=== PATIENT | male | born 1940 | race Caucasian/White ===

== ENCOUNTER 2023-08-19 15:00 | Emergency (ER) | payer MEDICARE, OTHER, SELFPAY ==
[2023-08-19 15:07] VITALS: BP 157/91
[2023-08-19 18:37] VITALS: BMI 37.9
[2023-08-19 18:38] VITALS: BP 137/82
[2023-08-19 19:00] VITALS: BP 137/83
[2023-08-19 19:01] LABS: % Basophils 0.6 % (0-2); % Eosinophils 1.5 % (0-6); % Immature Granulocytes 0.3 % (0-0.5); % Lymphocytes 22.6 % (20.5-51.1); % Monocytes 8.4 % (1.7-9.3); % Neutrophils 66.6 % (42.2-75.2); Absolute Basophils 0.1 10^3/uL (0-0.2); Absolute Eosinophils 0.1 10^3/uL (0-0.7); Absolute Monocytes 0.7 10^3/uL (0.1-0.6); Absolute Neutrophils 5.8 10^3/uL (1.4-6.5); Hematocrit 38.4 % (39.0-52.0); Hemoglobin 13.1 g/dL (13.0-18.0); Mean Corp Hgb Conc. 34.1 g/dL (33.0-37.0); Mean Corpuscular Hgb 29.7 pg (27.0-31.0); Mean Corpuscular Volume 87.1 fL (80.0-94.0); Mean Platelet Volume 10.7 fL (7.4-10.4); Nucleated Red Blood Cells % 0 % (-); Platelet Count 218 10^3/uL (130-400); Red Blood Cell Count 4.41 10^6/uL (4.70-6.10); Red Cell Dist. Width 13.8 % (11.5-14.5); White Blood Cell Count 8.7 10^3/uL (4.8-10.8)
[2023-08-19 19:26] LABS: ALT (SGPT) 20 U/L (0-50); AST (SGOT) 23 U/L (17-59); Albumin 3.8 g/dl (3.5-5.0); Alkaline Phosphatase 87 U/L (38-126); Blood Urea Nitrogen 21 mg/dl (9-20); Calcium 9.6 mg/dl (8.4-10.2); Carbon Dioxide 28 mmol/L (22-30); Chloride 107 mmol/L (98-107); Estimated Creatinine Clearance 71 ml/min; Glucose 85 mg/dl (70-99); Lipase 62 U/L (23-300); Potassium 4.2 mmol/L (3.5-5.1); Sodium 139 mmol/L (135-145); Total Bilirubin 0.6 mg/dl (0.2-1.3); Total Protein 6.2 g/dl (6.3-8.2); eGFR > 60.00
[2023-08-19 19:49] LABS: Urine Albumin Trace (Neg - Trace); Urine Bilirubin 1+ (Negative); Urine Character Clear (Clear); Urine Color Yellow; Urine Glucose Negative (Negative); Urine Ketone 1+ (Negative); Urine Leukocyte Negative (Negative); Urine Nitrite Negative (Negative); Urine Occult Blood Negative (Negative); Urine Specific Gravity 1.025 (<1.030); Urine Urobilinogen Negative (Neg - 1+)
--- NOTE | 2023-08-19 20:09 | ED.GENMED ---
History of Present Illness
General
Chief Complaint: Back Pain
Source: patient
Exam Limitations: none
Time Seen by Provider: 08/19/23 17:49
Nursing documentation reviewed up to this point in time: agreed with
Travel History
Have you had any contact with someone who has COVID-19?: No
Do you have any symptoms of coronavirus? Fever > 100 degrees, chills, cough, shortness of breath, sore throat, loss of taste or smell, muscle aches, or headache?: No
History of Present Illness
History of Present Illness:
Patient to ED with complaint of low back pain for 1 week. No history of trauma. Denies fever/chills, n/v/d. Denies any abdominal pain, cp/pressure, SOB. Eating and drinking normally. Pain is worse with movement. He was seen at and sent to ED
for further work-up. Brought to ED by spouse for eval.
Past History
Past History
ED Past Medical History: CAD and HTN
ED Past Surgical History: Cardiac
Social History
Tobacco: Non-smoker
Alcohol: None
Drug: None
Review of Systems
Review of Systems
Allergies reviewed?: Yes
All Other Systems: ROS reviewed and negative except as documented in HPI and ROS
Constitutional: Reports no symptoms
EENT: Reports no symptoms
Respiratory: Reports no symptoms
Cardiac: Reports no symptoms
ABD/GI: Reports no symptoms
: Reports no symptoms
Musculoskeletal: Reports back pain
Skin: Reports no symptoms
Neurological: Reports no symptoms
Psychiatric: Reports no symptoms
Phy Exam
General Physical Exam
General Presentation: well appearing and no apparent distress
General age: appears stated age
General Skin: warm and dry
General Habitus: normal
Cardiovascular Exam
Cardiovascular Exam: regular rate/rhythm and no edema
Pulmonary Exam
Pulmonary Exam: lungs clear and no respiratory distress
Gastrointestinal Exam
Gastrointestinal Exam: normal bowel sounds, non tender, soft, no organomegaly, non distended and no cva tenderness
Musculoskeletal Exam
Musculoskeletal Exam: full ROM, back pain and neuro vasc intact
Skin Exam
Skin Exam: normal color, warm/dry and no rash
Psychiatric Exam
Psychiatric Exam: normal mood/affect
Course
Orders/Labs/Results
Orders:
Orders
08/19/23 18:54
Complete Blood Count/With Diff Urgent
Comprehensive Metabolic Panel Urgent
Lipase Urgent
08/19/23 19:38
Lumbar Spine Complete, 4 View [CR Lumbar Spine Comp Min 4 Vw*] Urgent
Comment:
Reason For Exam: back pain
08/19/23 19:39
Urinalysis Reflex To Culture Urgent
Date Specimen was Collected: 08/19/23
Time Specimen was Collected: 19:37
08/19/23 20:32
Ct Chest/Abd/Pel Angio W/Wo Iv Urgent
Reason For Exam: pain
Abnormal Lab Results
08/19/23 08/19/23
18:54 19:39
RBC 4.41 L 10^6/uL
(4.70-6.10)
Hct 38.4 L %
(39.0-52.0)
MPV 10.7 H fL
(7.4-10.4)
Absolute Monos (auto) 0.7 H 10^3/uL
(0.1-0.6)
BUN 21 H mg/dl
(9-20)
Total Protein 6.2 L g/dl
(6.3-8.2)
Urine Ketones 1+ A
(Negative)
Urine Bilirubin 1+ A
(Negative)
08/19/23 18:54
08/19/23 18:54
Vital Signs
Initial and Last Documented VS:
Initial Vital Signs
Temp Pulse Resp BP Pulse Ox
98.5 F 85 16 157/91 96
08/19/23 15:07 08/19/23 15:07 08/19/23 15:07 08/19/23 15:07 08/19/23 15:07
Last Documented Vital Signs
Temp Pulse Resp BP Pulse Ox
98.5 F 85 16 137/83 94
08/19/23 15:07 08/19/23 15:07 08/19/23 15:07 08/19/23 19:00 08/19/23 20:01
*Critical Care Note
Total Time (30-74mins, 75-104mins- exclusive of procedures): Not Applicable
Update Note
Update Note:
Patient to ED from with complaint of low back pain. Has had back pain for the past week. Pain is worse with movement. No history of trauma. No fever/chills,n/v/d. No cp/pressure, SOB, cough, abdominal pain. No headache dizziness,
blurredvision. Became belligerent in ED due to long wait time. Threatening to give bad review on facebook. Unable to talk patient out of his ranting. Charge nurse notified, housekeeping aid notified, both in to see patient. Initially requested
discharge but then agreed to stay to complete work-up [facility] he states he was sent by provider to R/O aortic dissection. No concerning findings for dissection on clinical exam however CTA was performed. No dissection noted on CTA. Possible
thoracic compression fracture. He is discharged home.
ED Attending Note
-
Portions of this chart may have been created with voice recognition software.� Occasional wrong word or��sound alike� substitutions may have occurred due to the inherent limitations of voice recognition software.
Discharge Plan
Departure
Patient Disposition: Home (Routine Discharge)
Date of Disposition: 08/19/23
Time of Disposition: 20:06
Patient with high blood pressure during this ER visit?: No
Condition: Good
Covid-19: Not Applicable
Discharge Problem:
Back pain
Instructions: Low Back Pain (DC)
Prescriptions:
No Action
atorvastatin 40 MG tablet
40 mg PO HS
ascorbic acid (vitamin C) [Vitamin C] 1,000 MG tablet
1,000 mg PO DAILY
aspirin 81 MG tablet,delayed release (DR/EC)
81 mg PO DAILY
citalopram 20 MG tablet
30 mg PO DAILY
meclizine 25 MG tablet
25 mg PO PRN PRN (Reason: vertigo)
lidocaine 1 PATCH adhesive patch,medicated
1 patch topical PRN PRN (Reason: knee pain)
nitroglycerin 0.4 MG tablet, sublingual
1 spry sublingual PRN PRN (Reason: chest pain)
Patient Comments:
give 1 spray every 5 minutes to total of 3 doses
omeprazole [Prilosec] 20 MG capsule,delayed release(DR/EC)
20 mg PO DAILY
alfuzosin 10 MG tablet extended release 24 hr
20 mg PO HS
Patient Comments:
pt could NOT verify dosage for me but stated he takes '2 tabs'. Rafiq Buenrostro RN
metoprolol tartrate 25 MG tablet
25 mg PO DAILY
hydrocodone-acetaminophen [Vicodin] 1 EACH tablet
1 tab PO Q6HPRN PRN (Reason: pain)
Lactobac comb [id number] [Probiotic and Acidophilus] 1 EACH capsule
1 cap PO BID PRN (Reason: prn)
mecobalamin (vitamin B12) 1,000 MCG tablet,disintegrating
1,000 mcg sublingual DAILY
oxycodone-acetaminophen 5 MG/325 MG tablet
1 tab PO Q4HPRN PRN (Reason: MODERATE PAIN) Qty: 20 0RF
Rx Instructions:
OK to take half a pill if 1 pill is too much.
meclizine 25 MG tablet
25 mg PO Q8HPRN PRN (Reason: nausea or vertigo) Qty: 15 0RF
famotidine 20 MG tablet
20 mg PO BID Qty: 28 0RF
Rx Instructions:
Take 20 mg twice a day for 14 days
ascorbic acid (vitamin C) [Vitamin C] 500 MG tablet
1,000 mg PO BID Qty: 56 0RF
Rx Instructions:
Take 1,000 mg twice a day for 14 days
zinc sulfate 220 MG capsule
220 mg PO DAILY Qty: 14 0RF
Rx Instructions:
Take 220 mg daily for 14 days
cholecalciferol (vitamin D3) 1,000 UNITS tablet
2,000 units PO DAILY Qty: 28 0RF
Rx Instructions:
Take 2,000 units daily for 14 days
melatonin 5 MG tablet
5 mg PO HS Qty: 14 0RF
Rx Instructions:
Take 5 mg daily at bedtime for 14 days
Referrals:
Viral Salmon MD [Family Provider] -
Activity Restrictions/Additional Instructions:
Please follow up with your family doctor on Monday.
Interventions
Interventions:
*Risk Screen - Suicide Last Done: 08/19/23 18:37
*General Assessment Last Done: 08/19/23 18:37
*Neglect/Abuse Screening Last Done: 08/19/23 18:37
ED- Fall Risk Assessment Last Done: 08/19/23 18:37
*ED COVID-19 Vaccine History Last Done: 08/19/23 15:07
ED-Musculoskeletal Assessment Last Done: 08/19/23 18:37
== END 2023-08-19 21:38 | disposition home or self-care (01) ==
LOC: EMR 15:00
PROVIDERS: Nurse Practitioner; EMERGENCY PHYSICIAN Emergency Medicine; FAMILY PHYSICIAN Family Medicine
DX: M54.50 Low back pain, unspecified (principal); I25.10 Atherosclerotic heart disease of native coronary artery without angina pectoris; I10 Essential (primary) hypertension
CPT/HCPCS: 99284; 71275; 72110; 74174; 80053; 81003; 83690; 85025; Q9967

== ENCOUNTER → 2024-08-20 11:07 | Outpatient (REF) | payer MEDICARE, OTHER, SELFPAY | LOC: RCS 11:07 | PROVIDERS: ATTENDING PHYSICIAN Student in an Organized Health Care Education/Training Program; FAMILY PHYSICIAN Family Medicine | DX: I35.0 Nonrheumatic aortic (valve) stenosis (principal) | CPT/HCPCS: 93306 ==

== ENCOUNTER 2024-12-31 14:45 | Inpatient (IN) | payer MEDICARE, OTHER, SELFPAY ==
[2024-12-31 14:57] VITALS: BMI 37.7
[2024-12-31 15:00] VITALS: BP 123/80
--- NOTE | 2024-12-31 15:05 | CON.CAR ---
Addendum entered and electronically signed by Dante Bean MD 12/31/24 16:35:
Patient seen and examined in collaboration with [employer]; agree with below.
- 84-year-old male with coronary artery disease (BMS to RCA in 2000), permanent pacemaker implantation, hypertension, hyperlipidemia, aortic stenosis, NSVT, and obesity who presented to [facility] with symptoms concerning for
angina; labs and findings consistent with an NSTEMI. Cardiac catheterization was recommended, but patient wanted to be transferred to [facility] for management.
- Patient will undergo an echocardiogram today.
- Continue heparin drip.
- Continue Toprol-XL, atorvastatin, and aspirin.
- court recording monitor.
- Will arrange cardiac catheterization for tomorrow morning; n.p.o. after midnight.
Original Note:
Consultation
Consultation Request
Date/Time Consultation Requested: 12/31/2024 15:00
Date/Time Consultation Performed: 12/31/2024 15:05
Requesting Provider: Dr. Sharma
Performing Provider: NESSA Steen for Dr. Bean
Reason for Consultation: NSTEMI
Medical History
-
Chief Complaint: Bilateral arm pain
History of Present Illness:
Guillermo Moreno is an 84-year-old male (known to Dr. Dan, switching to Dr. 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
[place] with bilateral arm pain. This has been ongoing for approximately 5 weeks. He has hand pain that radiates up his arms. This is very reminiscent of his prior LA. He tried tramadol without relief. He has been to many urgent cares and was
even in the emergency department without any acute findings. He endorses associated diaphoresis and mild chest pressure. Prior to arrival at other facility he took 2 nitroglycerin. He was found to have an abnormal troponin. The patient requested
transfer to this facility for continuation of care. He denies chest pain presently.
No records available, requested.
Past Medical History
Past Medical History: Arrhythmias (NSVT), CAD (BMS 2000), HTN, Hypercholesterolemia and Valvular Disease (Aortic stenosis)
Past Surgical History: Bowel Resection and Tonsilectomy
Social History
Tobacco: Non-Smoker
Personal:
Living: With Family
Employment: Retired (Salesman)
Family History
Family History: Reviewed & Not Pertinent
Allergies / Home Medications
Allergy/AdvReac Type Severity Reaction Status Date / Time
No Known Allergies Allergy Verified 11/13/20 08:50
�Medication �Instructions �Recorded �Confirmed �Type
Lactobacillus comb 1 cap PO BID PRN prn 06/23/15 06/23/15 History
no.[id number] 300 million
cell-250 mg capsule (Probiotic and
Acidophilus)
alfuzosin 10 mg tablet,extended 20 mg PO HS 06/23/15 06/23/15 History
release 24 hr
ascorbic acid (vitamin C) 1,000 mg 1,000 mg PO DAILY 06/23/15 06/23/15 History
tablet (Vitamin C)
aspirin 81 mg tablet,delayed 81 mg PO DAILY 06/23/15 06/23/15 History
release
atorvastatin 40 mg tablet 40 mg PO HS 06/23/15 06/23/15 History
citalopram 20 mg tablet 30 mg PO DAILY 06/23/15 06/23/15 History
hydrocodone 5 mg-acetaminophen 300 1 tab PO Q6HPRN PRN pain 06/23/15 06/23/15 History
mg tablet (Vicodin)
lidocaine 5 % topical patch 1 patch topical PRN PRN knee pain 06/23/15 06/23/15 History
meclizine 25 mg tablet 25 mg PO PRN PRN vertigo 06/23/15 06/23/15 History
mecobalamin (vitamin B12) 1,000 1,000 mcg sublingual DAILY 06/23/15 06/23/15 History
mcg disintegrating
tablet,sublingual
metoprolol tartrate 25 mg tablet 25 mg PO DAILY 06/23/15 06/23/15 History
nitroglycerin 0.4 mg sublingual 1 spry sublingual PRN PRN chest 06/23/15 06/23/15 History
tablet pain
omeprazole 20 mg capsule,delayed 20 mg PO DAILY 06/23/15 06/23/15 History
release (Prilosec)
oxycodone-acetaminophen 5 mg-325 1 tab PO Q4HPRN PRN MODERATE PAIN 06/24/15 Rx
mg tablet ##20
meclizine 25 mg tablet 25 mg PO Q8HPRN PRN nausea or 04/11/18 Rx
vertigo #15 tabs
ascorbic acid (vitamin C) 500 mg 1,000 mg (2 x 500 mg) PO BID #56 08/11/21 Rx
tablet (Vitamin C) tabs
cholecalciferol (vitamin D3) 25 2,000 units PO DAILY #28 tabs 08/11/21 Rx
mcg (1,000 unit) tablet
famotidine 20 mg tablet 20 mg PO BID #28 tabs 08/11/21 Rx
melatonin 5 mg tablet 5 mg PO HS #14 tabs 08/11/21 Rx
zinc sulfate 50 mg zinc (220 mg) 220 mg (4.4 x 50 mg zinc (220 mg)) 08/11/21 Rx
capsule PO DAILY #14 caps
Review of Systems
-
History Source: Patient
All other systems: Negative unless noted
Constitutional: Fatigue
EENT: No Symptoms
Respiratory: No Symptoms
Cardiac: Other (See HPI)
Abdomen/GI: No Symptoms
: No Symptoms
Musculoskeletal: No Symptoms
Skin: No Symptoms
Neurological: No Symptoms
Endocrine: No Symptoms
Hematologic/Lymphatic: No Symptoms
Physical Exam
Vital Signs
Temp Pulse Resp Pulse Ox
98.4 F 104 18 95
12/31/24 14:56 12/31/24 14:56 12/31/24 14:56 12/31/24 14:56
Physical Exam
General: Well Developed, Well Nourished, No Apparent Distress and Comfortable
HEENT: Normocephalic, Anicteric and Moist Mucous Membranes
Respiratory: Clear and Non Labored Respirations
Cardiac: S1/S2, Regular Rhythm and Murmur (LUKAS III/)
Breast: Deferred by me
GI: Soft, Non Tender, Non Distended and Normal Bowel Sounds
Rectal: Deferred by Provider
Genito-urinary: No Costovertebral Tender
Musculoskeletal: No Clubbing, No Cyanosis and No Edema
Skin: Warm and Dry
Neuro: AO x 3
Hematologic/Lymphatic: No Lymphadenopathy
Psych: Calm
Impression / Plan
-
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 He was transferred to [facility] 12/31/2024.
Outpatient cell room operator: Dr. Grant
NSTEMI
- Initial TnI 222, 921 prior to transfer, trend to peak here
- Continue aspirin and heparin drip, nitroglycerin if needed
- Currently chest pain-free
- Echocardiogram
- Cardiac catheterization tomorrow
Apical hypokinesis, seen on prior TTE, update
CAD
- On aspirin, BB, and statin
Hypertension
- Continue current medical therapy, stable
Paroxysmal atrial fibrillation
-4-hour episode 09/10/2024 on device
-Oral anticoagulation: Heparin gtt
-[id number]: score at least 4 (HTN, age 75 or more, Vascular disease)
NSVT
- Stable without palpitations
- Most recent episode 11/22/2024
Aortic stenosis, peak/mean gradients 24/12 mmHg
Mitral stenosis, mild to moderate on prior TTE
Fasting hyperglycemia, HgbA1c pending
Dyslipidemia, most recent LDL below goal, update fasting lipid panel with ACS
[employer] PPM, normal function on interrogation, 3 months of battery remaining
Obesity, BMI 37, he would benefit from weight loss
Data Reviewed
-
EKG: Report Reviewed by me
Medical Tests (Nuc Med, Echo etc): Report Reviewed by me
Labs: Labs Reviewed by me
Old Records: Requested and Reviewed
--- NOTE | 2024-12-31 15:25 | PTCARENOTE ---
Rec'd pt from [facility]. Heparin gtt infusing at 10ml/hr. Assessment completed as documented. Tele- AV paced. Pt has no complaints CP/discomfort/sob at this time. Labs collected and sent. Ekg obtained. Oriented pt to room. Plan of care reviewed w/
pt and verbalizes understanding. Currently in bed; call hira w/in reach.
--- NOTE | 2024-12-31 15:30 | HPS.HSE ---
Family Physician
-
Family Physician: NESSA Agustin
Chief Complaint
-
B/L hand/wrist pain with proximal radiation
History of Present Illness
84 y/o M with PMHx:
CAD s/p IN and stent in 2002 (previously saw Dr. Vital)
Essential hypertension
Hyperlipidemia
BPH
who presented earlier today to [facility] reporting months of pain in his R hand/wrist radiating proximally up his right arm since his last cardiology appointment in August 2024. More recently he has had similar symptoms in his left
arm. The symptoms occur when he gets ready to go to bed at night. He states the only thing that alleviates the pain is having coffee. Denies associated chest pain, palpitations, shortness of breath, lightheadedness. Denies any other acute
complaints. Reports he is otherwise in his usual state of health.
Medical History
Past Medical History
Past Medical History: Reports Other (CAD s/p IN and stent in 2002 (previously saw Dr. Vital) Essential hypertension Hyperlipidemia BPH)
Past Surgical History: Reports Other (N/A)
Social History
Tobacco: Former Smoker (quit 1997)
Alcohol: None
Drug: None
Family History
Family History: Not pertinent
Allergies / Home Medications
Allergies reflects when Allergies were last updated in [employer].
Home Medications with original date entered in [employer]
Allergy/Medication List:
Medication reconciliation is being done at this time. The patient reports he is on Toprol-XL, aspirin, Lipitor, and losartan. He is unsure of the doses at this moment.
Review of Systems
-
History Source: Patient
A 12 point ROS was completed and negative except as noted: Yes
Physical Exam
Vital Signs
Vital Signs
Temp Pulse Resp Pulse Ox
98.4 F 104 18 95
12/31/24 14:56 12/31/24 14:56 12/31/24 14:56 12/31/24 14:56
Physical Exam
General: Other (.)
Impression/Plan
-
Gen: NAD, AAOx3.
Eyes: EOMI, PERRLA, no scleral icterus.
Neck: supple.
CV: RRR, +S1/S2, no m/r/g.
Resp: CTAB, no rales, wheezes, or rhonchi.
Abd: +BS, soft, NT, ND
Skin: No rashes.
Neuro: CN 2-12 intact, non-focal.
Psych: Normal mood and affect.
ECG (read by me): V-paced at 108
Cr 0.79, K 3.6
WBC 9.66, Hb 11.8, plt 187
D-dimer 0.35
hsTrop 222, 699, 921
Elevated trop/ACS:
-cont heparin gtt ACS protocol
-trend trop
-monitor on tele
-check echo
-c/s cards
-cont BB
-place on ASA/statin
Essential HTN:
-cont BB
-based on current BP will trend BP on BB only. Attempting to obtain home dosing of Losartan.
HLD:
-cont statin
FULL/heparin gtt
[2024-12-31 15:35] LABS: Hematocrit 36.5 % (39.0-52.0); Hemoglobin 11.9 g/dL (13.0-18.0); Mean Corp Hgb Conc. 32.6 g/dL (33.0-37.0); Mean Corpuscular Volume 82.4 fL (80.0-94.0); Platelet Count 195 10^3/uL (130-400); Red Cell Dist. Width 16.2 % (11.5-14.5)
[2024-12-31 15:56] LABS: Troponin I 1.820 ng/ml
[2024-12-31 16:00] LABS: APTT 58.0 Sec (23.4-35.0)
[2024-12-31 17:11] VITALS: BP 143/82
[2024-12-31] MEDS: TOPROL XL 25 MG PO (17:11)
[2024-12-31] MEDS: LIPITOR 40 MG PO (17:11)
[2024-12-31] MEDS: LOW STRENGTH ASPIRIN 81 MG PO (17:12)
[2024-12-31 18:49] LABS: Troponin I 3.020 ng/ml
[2024-12-31 18:52] VITALS: BP 143/74
[2024-12-31] MEDS: TYLENOL 650 MG PO (21:33)
[2024-12-31 22:13] LABS: APTT 35.5 Sec (23.4-35.0)
[2024-12-31 22:52] VITALS: BP 130/72
[2024-12-31 23:07] LABS: Troponin I 3.990 ng/ml
--- NOTE | 2024-12-31 23:21 | PTCARENOTE ---
received the patient at the change of shift. AAOx3. denies any cp/arm pain. complains of Rt lower back pain- Tylenol given, see mar. patient states improved in pain- 'i was able to fall asleep.' heparin gtt infusing per protocol. Vpaced on tele
-80s. bp stable. reviewed plan of care with patient and verbalized understanding. NPO at midnight for a cardiac cath. educated patient to call RN with any changes. call iniguez within reach. makes needs known.
[2024-12-31 23:57] VITALS: BP 139/78
[2025-01-01] VITALS (16 sets, daily range): BP systolic 101–168; BP diastolic 64–93; BMI 37.5
[2025-01-01] MEDS: NITROSTAT (SUBLINGUAL) 0.4 MG SL (00:27)
--- NOTE | 2025-01-01 00:38 | PTCARENOTE ---
patient states waking up out of sleep in a panic. complaining of b/l hand pain 4/10- same pain patient has been having and that brought him in the hospital. shortness of breath noted. patient states sweating. assisted patient to the chair. once in
the chair, patient states improved pain- 2/10; b/l hands. bp 142/73. HR paced 80s. discussed plan of care with Ed Alex HILARIO. sublingual nitro given. bp 144/90.
patient states no pain after nitro. resting in the chair. bp 101/64. denies any lightheadedness/dizziness. educated patient to inform RN with any new pain overnight. call iniguez placed within reach.
[2025-01-01 04:58] LABS: Hematocrit 36.4 % (39.0-52.0); Hemoglobin 11.7 g/dL (13.0-18.0); Mean Corp Hgb Conc. 32.1 g/dL (33.0-37.0); Mean Corpuscular Volume 83.7 fL (80.0-94.0); Platelet Count 207 10^3/uL (130-400); Red Cell Dist. Width 16.5 % (11.5-14.5)
[2025-01-01 05:22] LABS: Blood Urea Nitrogen 15 mg/dl (9-20); Calcium 9.2 mg/dl (8.4-10.2); Carbon Dioxide 25 mmol/L (22-30); Chloride 112 mmol/L (98-107); Estimated Creatinine Clearance 90 ml/min; Glucose 128 mg/dl (70-99); HDL Cholesterol 44 mg/dl; LDL Cholesterol, Calculated 46 mg/dl; Potassium 4.2 mmol/L (3.5-5.1); Sodium 142 mmol/L (135-145); Very Low Density Lipoprotein 25 mg/dl (0-30); eGFR > 60.00
[2025-01-01 05:29] LABS: APTT 50.7 Sec (23.4-35.0)
[2025-01-01 05:34] LABS: Troponin I 3.270 ng/ml
[2025-01-01] MEDS: LOW STRENGTH ASPIRIN 81 MG PO (07:56)
[2025-01-01] MEDS: TOPROL XL 25 MG PO (07:56)
[2025-01-01] MEDS: CYMBALTA DELAYED RELEASE 60 MG PO (07:56)
[2025-01-01] MEDS: VITAMIN B-12 1000 MCG PO (07:56)
[2025-01-01] MEDS: PROTONIX 40 MG PO (07:56)
[2025-01-01] MEDS: CELEXA PO (07:57)
[2025-01-01] MEDS: HEPARIN 25000 UNITS/250 ML IV (08:00)
[2025-01-01 08:30] LABS: Glycohemoglobin (HgbA1c) 6.6 % (4.0-5.6)
--- NOTE | 2025-01-01 09:13 | W.PN.HOSP.TC ---
Today's Communication/Plan
-
see plan
Assessment / Plan
Assessment / Plan
Gen: NAD, AAOx3.
Eyes: EOMI, PERRLA, no scleral icterus.
Neck: supple.
CV: remains RRR, +S1/S2, no m/r/g.
Resp: remains CTAB, no rales, wheezes, or rhonchi.
Abd: remains +BS, soft, NT, ND
Skin: No rashes.
Neuro: CN 2-12 intact, non-focal.
Psych: Normal mood and affect.
ECG (read by me): V-paced at 108
Echo: EF 40-45%. Akinesis/dyskinesis of the apical regions; no LV thrombus present (contrast agent used). Severe basal inferior hypokinesis. Abnormal (paradoxical) septal motion consistent with RV pacemaker. Normal right ventricular size and
function. Pacer wire seen in right ventricle. Severely dilated left atrium. Moderate mitral stenosis; peak/mean gradients are 17/7 mmHg. Mild aortic stenosis; peak/mean gradients 21/11 mmHg. Compared to previous echo on 08/20/2024, there is a decline
in LVEF (previously 50%).
Elevated trop/ACS:
-cont heparin gtt ACS protocol
-trop peaked at 3.99
-monitor on tele
-echo above
-cards following
-cont BB/ASA/statin
-cath today
Essential HTN:
-cont BB
HLD:
-cont statin
RN updated
Daughter updated at bedside.
FULL/heparin gtt
Anticipated Discharge: Within 24 hours
Subjective/Interval History
-
Date of Service: January 01, 2025
Denies CP/SOB.
Objective Data
-
Labs:
Laboratory Results
12/31/24 01/01/25 01/01/25
21:49 04:36 11:35
WBC 7.7
Hgb 11.7 L
Hct 36.4 L
Plt Count 207
APTT 35.5 H 50.7 H Pending
Sodium 142
Potassium 4.2
Chloride 112 H
Carbon Dioxide 25
BUN 15
Creatinine 0.7
Glucose 128 H
Calcium 9.2
Vital Signs:
Vital Signs
Temp Pulse Resp BP Pulse Ox
98.3 F 87 18 156/76 98
01/01/25 07:46 01/01/25 07:46 01/01/25 07:46 01/01/25 07:46 01/01/25 07:46
I&O
12/31/24 01/01/25 01/02/25
06:59 06:59 06:59
Intake Total 850 / 850
Balance 850 / 850
--- NOTE | 2025-01-01 09:29 | W.PN.CD ---
Today's Communication / Plan
-
Right/Left heart catheterization today.
GDMT will be adjusted based on cath findings.
Patient will ultimately benefit from SGLT2i and GLP-1.
Impression / Plan
-
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 with ACS
Outpatient cleaning porter: Dr. Grant
#NSTEMI
-Acute.
-EKG is paced.
-Initial high sensitivity TnI 222, increased to 921 prior to transfer. Troponin peaked at 3.990.
-Echo shows apical akinesis/dyskinesis, new severe inferior basal hypokinesis and reduced LVEF (now 40-45%).
-Continue aspirin, atorvastatin, heparin gtt, metoprolol.
-Plan for cardiac catheterization today to clarify coronary anatomy.
#Cardiomyopathy
-Worsening, LVEF now 40-45%.
-Coronary angiography today.
-GDMT
-Diuretics: None. He does not appear to be in heart failure. Check LVEDP at cath.
-Beta blockers: Metoprolol succinate 25 mg BID.
-ACEI/ARB/ARNi: Hold pending cath.
-MRA: Hold pending cath.
-SGLT2i: Hold pending cath.
-ICD: PPM in place. ICD not currently indicated.
#Hypertension
-Chronic, stable.
-Continue metoprolol.
#Paroxysmal atrial fibrillation/SSS (syncope)
-Chronic, s/p PPM, currently paced.
-4-hour episode of AF 09/10/2024 on device.
-Rate/rhythm control with metoprolol.
-[id number]: score at least 4 (HTN, age 75 or more, Vascular disease).
-Oral anticoagulation: Heparin gtt.
#NSVT
- Stable without palpitations
- Most recent episode 11/22/2024.
#Hyperlipidemia
-Chronic, stable.
-Total cholesterol = 115, LDL = 46, HDL = 44, Triglycerides = 126.
-Continue atorvastatin.
#Mild Aortic stenosis
-Chronic.
-Peak/mean gradients 24/12 mmHg.
-We will assess at cath today.
#Moderate Mitral stenosis
-Chronic.
-We will assess at cath today (we will add RHC).
#NIDDM2
-New diagnosis.
-HbA1c = 6.6%.
-He would benefit from GLP-1 analog given diagnosis of CAD.
#Obesity
-Chronic, BMI 37.
-He would benefit from weight loss - including GLP-1 analog.
Subjective/Interval History:
No acute events.
No subjective complaints.
Troponin peaked at 3.990.
DATA:
Transthoracic echocardiogram, 12/31/2024:
CONCLUSIONS
-Left ventricular ejection fraction is 40-45%. Akinesis/dyskinesis of the
apical regions; no LV thrombus present (contrast agent used). Severe basal
inferior hypokinesis. Abnormal (paradoxical) septal motion consistent with RV
pacemaker.
-Normal right ventricular size and function. Pacer wire seen in right
ventricle.
-Severely dilated left atrium.
-Moderate mitral stenosis; peak/mean gradients are 17/7 mmHg.
-Mild aortic stenosis; peak/mean gradients 21/11 mmHg.
Physical Exam
Vital Signs/Labs
Vital Signs
Temp Pulse Resp BP Pulse Ox
36.8 C 87 18 156/76 98
01/01/25 07:46 01/01/25 07:46 01/01/25 07:46 01/01/25 07:46 01/01/25 07:46
12/30/24 12/31/24 01/01/25
11:59 11:59 11:59
Actual Weight 102.1 kg
01/01/25 04:36
01/01/25 04:36
APTT 50.7 Sec (23.4-35.0) H 01/01/25 04:36
Triglycerides 126 mg/dl (10-149) 01/01/25 04:36
LDL Cholesterol, Calc 46 mg/dl 01/01/25 04:36
VLDL Cholesterol, Calc 25 mg/dl (0-30) 01/01/25 04:36
HDL Cholesterol 44 mg/dl 01/01/25 04:36
LAB Results
12/31/24 12/31/24 12/31/24
15:22 18:14 21:49
Troponin I 1.820 H* 3.020 H* D 3.990 H* D
01/01/25
04:36
Troponin I 3.270 H*
Physical Exam
Constitutional: No acute distress and Comfortable
EENT: Anicteric and Moist mucous membranes
Cardiovascular: Rhythm & rate is regular, Pedal edema is absent, JVD pressure is normal and S1S2 is normal
Respiratory: Respiratory effort normal, Lungs clear to auscul., Wheeze Absent, Crackles Absent and Rhonchi Absent
GI: Soft, Distention absent, Flat, Non tender and Normal bowel sounds
Neuro/Psych: AO x 3
Data Reviewed
-
Date of Service: January 01, 2025
Medical Decision Making: Reviewed Test Results, Independent Historian Assessment and Test Interpretation
EKG: Tracing Personally Visualized and interpreted and Report Reviewed by me
Echo: Report Reviewed by me
X-Ray/CT/US/MRI/NUC/PET: Image Personally Visualized and interpreted and Report Reviewed by me
Labs: Labs Reviewed by me
Old Records: Reviewed
[2025-01-01 12:16] LABS: APTT 69.0 Sec (23.4-35.0)
--- NOTE | 2025-01-01 12:24 | CM ---
Chart reviewed. Patient is independent of ADLS, lives with his in a 2 STH, 1st level set up, 0 AUDREY, ambulates with a RW and SPC and also has scooter. Plan is for the patient to return home. CM to follow
--- NOTE | 2025-01-01 13:31 | ITS.CL.CATH ---
Aerospace Manager - Catheterization
Cardiac Catheterization
Procedure Report:
CARDIAC CATHETERIZATION REPORT
Date of Procedure: 01/01/2025
Referring: Dante Bean M.D.
Indication: Non-ST elevation myocardial infarction, mild mitral stenosis.
PROCEDURE:
1. Right heart catheterization.
2. Coronary angiography.
3. Left heart catheterization.
A total of 19 minutes of procedural/moderate sedation was utilized. An independent medical insurance coder was present to assist with and help manage the patient's level of consciousness and physiologic status.
ACCESS:
1. 6 Angolan right radial artery using a modified Seldinger technique under ultrasound guidance.
2. 5 Angolan right antecubital vein using a modified Seldinger technique under ultrasound guidance.
CATHETERS:
1. 5 Angolan balloon with.
2. 5 Angolan JL 3.5.
3. 5 Angolan JR4.
HEMODYNAMIC DATA
Weight (kg): 102.1
AO (s/d/x, mmHg): 134/73/97
LV (s/x, mmHg): 153/20
PCWP (a/v/x, mmHg): 25//
PA (s/d/x, mmHg): 37//27
RV (s/x, mmHg): 37/16
RA (a/v/x, mmHg): 18/17/16
SVC SvO2 (%): 67.0
IVC SvO2 (%): Not obtained.
RA SvO2 (%): Not obtained.
RV SvO2 (%): Not obtained.
PA SvO2 (%): 64.2
SaO2 (%): 93.1
Hbg (g/dL): 12.1
EULALIA
CO (L/min): 5.04
CI (L/min/m2): 2.43
Thermodilution
CO (L/min): Not performed.
CI (L/min/m2): Not performed.
TPG (mmHg): 7
PVR (Hernández Units): 1.39
SVR (dynes*seconds*cm^-5): 1286
AVO2 Diff (Volume %): 4.76
AV gradient (x, mmHg): 23.3
AV area (cm2): 1.04
MV gradient (x, mmHg): 4.27
MV area (cm2): 2.93
LEFT VENTRICULOGRAPHY: Not performed.
AORTOGRAPHY: Not performed.
CORONARY ANGIOGRAPHY
Dominance: Right.
Left Main: Extremely short, trifurcating vessel. There is no obvious coronary artery disease.
LAD: Normal size vessel giving rise to 2 notable diagonals. The vessel is nonselectively imaged due to the very short left main coronary artery. Engagement with the vessel caused dampening and angiography suggest a 70+ percent lesion in the
proximal/ostium of the vessel. There is a 90% lesion in the mid vessel after the origin of D1. This lesion continues though becomes less severe as it crosses D2 into the distal LAD. The distal LAD itself appears relatively healthy.
Ramus: Relatively small vessel supplying the proximal anterior lateral wall. There is no coronary artery disease.
Circumflex: Large size, nondominant vessel that is essentially a single large obtuse marginal supplying the lateral wall. There is a hazy, 80-90% lesion in the proximal circumflex.
RCA: Normal size, dominant vessel. There is a 30% lesion in the ostium of the vessel. A patent stent is visible in the proximal vessel with 20% in-stent restenosis. There is a 30-40% lesion in the distal RCA at the crux. There is calcific
stenosis in the distal vessel at the bifurcation of the RPDA and RPL. There is a 70% lesion in the ostium of the RPDA.
INTERVENTIONS
None.
Closure Device: Vascular band for the right radial artery, manual pressure for the right antecubital vein.
Radiation dose (mGy): 656.58
DAP (cm2.Gy): 33.6464
Fluoroscopy time (minutes): 4.7
CONCLUSIONS:
1. Right dominant circulation with a 30% lesion in the ostium of the RPDA followed by a patent stent with 20% ISR, a 30-40% lesion in the distal RCA at the crux and a 70% lesion in the ostium of the RPDA, a hazy, 80-90% lesion in the proximal
circumflex, and extremely short left main leading to nonselective imaging of the LAD, demonstrating a 70+ percent lesion in the ostium/proximal margin of the vessel with dampening of the catheter on engagement, and 90% lesion in the mid vessel
originating at the origin of D1.
2. Moderately elevated filling pressures (LVEDP = 20 mmHg, PCWP = 20 mmHg at 102.1 kg).
3. Mild postcapillary pulmonary hypertension (mean PA = 27 mmHg, PCWP = 20 mmHg, cardiac output = 5.04 L/min, PVR = 1.39 Hernández units), WHO group 2.
4. At least moderate aortic valve stenosis (mean gradient 23.3 mmHg on pullback, LILIBETH = 1.04 cm�).
5. No evidence of meaningful mitral valve stenosis.
6. Of note, after reviewing the films, we suffered a significant failure of the flat panel imaging system. Thankfully, the procedure was complete and the patient was removed from the table.
RECOMMENDATIONS:
1. Expectant management after cardiac catheterization via right radial/antecubital approach.
2. Limited weight bearing on the right wrist for one week.
3. Consultation with CT surgery regarding optimal revascularization strategy (CABG versus PCI versus MIDCAB/hybrid).
4. OMT/GDMT as hemodynamics will tolerate.
5. Aggressive secondary prevention with high-dose, high potency statin. Goal LDL is less than 55 (currently 46).
Copy to: Dante Bean M.D., NESSA Koenig, Yvon Lockwood M.D.
Kaiden Prakash, DO, FACC, FACP
[2025-01-01] MEDS: NSS 1000 IV (14:00)
--- NOTE | 2025-01-01 14:16 | PTCARENOTE ---
Rec'd pt post cath. R brachial site c/d/i and R radial w/ external hemostasis band on. No bleeding/hematoma noted. Pt has no complaints cp/sob/discomfort at this time. Activity restrictions reviewed w/ pt and verbalizes understanding. Currently in
bed; call hira w/in reach.
--- NOTE | 2025-01-01 14:36 | CONSULT.CT ---
Consultation
-
Date/Time Consultation Requested: 01/01/25 13:46
Date/Time Consultation Performed: 01/01/25 14:36
Requesting Provider: Dwain
Performing Provider: Luisa
Reason for Consultation: CAD
Patient History
Physicians
Family Physician: NESSA Koenig
History of Present Illness
Guillermo Moreno is an 84-year-old male (known to Dr. Dan, switching to Dr. 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
with bilateral arm pain. This has been ongoing for approximately 5 weeks. He has hand pain that radiates up his arms. This is very reminiscent of his prior [place]. He tried tramadol without relief. He has been to many urgent cares and was even in
the emergency department without any acute findings. He endorses associated diaphoresis and mild chest pressure. Prior to arrival at other facility he took 2 nitroglycerin. He was found to have an abnormal troponin. The patient requested
transfer to this facility for continuation of care. He denies chest pain presently.
Past Medical History
Past Medical History: Atrial Fib, BPH, HTN, Hypercholesterolemia and [place] (NSTEMI)
Past Surgical History
Past Surgical History: PCI/Stent (2000), Tonsilectomy and Other (bowel resection)
PPM
Social History
Tobacco: Non-Smoker
Personal:
Living: With Family
Employment: Retired
Allergies
Allergy/AdvReac Type Severity Reaction Status Date / Time
No Known Allergies Allergy Verified 11/13/20 08:50
Home Medications
�Medication �Instructions �Recorded �Confirmed �Type
Lactobacillus comb 1 cap PO BID PRN prn 06/23/15 12/31/24 History
[id number] 300 million
cell-250 mg capsule (Probiotic and
Acidophilus)
alfuzosin 10 mg tablet,extended 20 mg PO HS 06/23/15 12/31/24 History
release 24 hr
ascorbic acid (vitamin C) 1,000 mg 1,000 mg PO DAILY 06/23/15 12/31/24 History
tablet (Vitamin C)
aspirin 81 mg tablet,delayed 81 mg PO DAILY 06/23/15 12/31/24 History
release
atorvastatin 40 mg tablet 40 mg PO HS 06/23/15 12/31/24 History
citalopram 20 mg tablet 30 mg PO DAILY 06/23/15 12/31/24 History
mecobalamin (vitamin B12) 1,000 1,000 mcg sublingual DAILY 06/23/15 12/31/24 History
mcg disintegrating
tablet,sublingual
metoprolol tartrate 25 mg tablet 25 mg PO DAILY 06/23/15 12/31/24 History
nitroglycerin 0.4 mg sublingual 1 spry sublingual PRN PRN chest 06/23/15 12/31/24 History
tablet pain
omeprazole 20 mg capsule,delayed 20 mg PO DAILY 06/23/15 12/31/24 History
release (Prilosec)
oxycodone-acetaminophen 5 mg-325 1 tab PO Q4HPRN PRN MODERATE PAIN 06/24/15 12/31/24 Rx
mg tablet ##20
zinc sulfate 50 mg zinc (220 mg) 220 mg (4.4 x 50 mg zinc (220 mg)) 08/11/21 12/31/24 Rx
capsule PO DAILY #14 caps
celecoxib 200 mg capsule (Celebrex) 200 mg PO DAILY 12/31/24 12/31/24 History
duloxetine 60 mg capsule,delayed 60 mg PO DAILY 12/31/24 12/31/24 History
release
tramadol 50 mg tablet 50 mg PO Q6H PRN arthritis pain 12/31/24 12/31/24 History
Review of Systems
-
History Source: Patient and Family
General: Reports No Symptoms
HEENT: Reports No Symptoms
Respiratory: Reports No Symptoms
Cardiac: Reports Other (arm pain)
Abdomen/GI: Reports No Symptoms
: Reports No Symptoms
Musculoskeletal: Reports Joint Pain (b/l knee DJD)
Skin: Reports No Symptoms
Neurological: Denies CVA or TIA
Vascular: Reports No Symptoms
Physical Exam
Vital Signs
Temp 98.0 F 01/01/25 11:27
Temp route: Oral 01/01/25 11:27
Pulse 67 01/01/25 14:15
Rhythm: V paced (venticular) 01/01/25 08:00
Resp Rate 18 01/01/25 11:27
Blood pressure 131/83 01/01/25 14:15
Blood pressure extremity used: Left upper arm 01/01/25 11:27
Position: Sitting 01/01/25 11:27
MAP (cuff-Kehinde Monitor) 100 01/01/25 14:15
SaO2 96 01/01/25 11:27
Oxygen Mode of Delivery Room air 01/01/25 08:00
Can the patient verbally communicate their pain? Yes 01/01/25 00:32
Pain scale ratin 01/01/25 00:32
Actual Weight 225 lb 1.471 oz 01/01/25 05:26
Body Mass Index (BMI) 37.5 01/01/25 05:26
Labs
01/01/25 04:36
01/01/25 04:36
APTT 69.0 Sec (23.4-35.0) H 01/01/25 11:48
Hemoglobin A1c 6.6 % (4.0-5.6) H 12/31/24 15:22
Troponin I 3.270 ng/ml H* 01/01/25 04:36
Exam
General: Well Developed, Well Nourished and No Apparent Distress
HEENT: Normocephalic
Neck: Trachea Midline; Negative JVD
Respiratory: Clear
Cardiac: Regular Rhythm and Murmur (2/6 systolic )
GI: Soft, Non Tender and Non Distended
Rectal: Deferred by Provider
Neuro: Awake and AO x 3
Assessment / Plan
-
84 y/o with NSTEMI found to have 3VCAD. He appears to be a good candidate for CABG.
Options for medical management, hybrid Midcab with JACKMAN to LAD then stenting of Cx. and RCA, and standard CABG explained to patient.
Patient and family still undecided.
Please see Dr. Lockwood's assessment/plan for further recommendations.
[2025-01-01] MEDS: LIPITOR 40 MG PO (17:16)
--- NOTE | 2025-01-01 23:25 | PTCARENOTE ---
Assumed care of the pt @ 1900. Pt is AAOx3 forgetful @ times.. Up walking around the unit at change of shift. V -paced on the monitor VSS rt radial and brachial cath site dressing c/d/i. Heparin gtt infusing @ 1500 units/HR. Denies cp Call iniguez
within reach.
[2025-01-02] VITALS (8 sets, daily range): BP systolic 93–144; BP diastolic 53–88; BMI 37.2
[2025-01-02 00:34] LABS: APTT 83.7 Sec (23.4-35.0)
[2025-01-02 06:12] LABS: B.E. -0.7 mmol/L; HCO3 23.2 mmol/L (21-28); O2 Saturation % 96.7 % (94-98); PCO2 35 mmHg (35-48); PO2 76 mmHg (83-108)
[2025-01-02 06:34] LABS: INR 1.07; PT 14.4 Sec (11.4-14.6)
[2025-01-02 06:35] LABS: APTT 65.0 Sec (23.4-35.0)
[2025-01-02 06:47] LABS: ALT (SGPT) 18 U/L (0-50); AST (SGOT) 31 U/L (17-59); Albumin 3.8 g/dl (3.5-5.0); Alkaline Phosphatase 81 U/L (38-126); Blood Urea Nitrogen 13 mg/dl (9-20); Calcium 9.3 mg/dl (8.4-10.2); Carbon Dioxide 22 mmol/L (22-30); Chloride 113 mmol/L (98-107); Estimated Creatinine Clearance 89 ml/min; Glucose 109 mg/dl (70-99); Potassium 3.8 mmol/L (3.5-5.1); Sodium 142 mmol/L (135-145); Total Protein 6.2 g/dl (6.3-8.2); eGFR > 60.00
[2025-01-02 06:58] LABS: Hematocrit 37.1 % (39.0-52.0); Hemoglobin 11.7 g/dL (13.0-18.0); Mean Corp Hgb Conc. 31.5 g/dL (33.0-37.0); Mean Corpuscular Volume 83.7 fL (80.0-94.0); Platelet Count 198 10^3/uL (130-400); Red Cell Dist. Width 16.2 % (11.5-14.5)
[2025-01-02] MEDS: HEPARIN 25000 UNITS/250 ML IV ×2 (07:06→23:12)
--- NOTE | 2025-01-02 07:21 | W.PN.HOSP.TC ---
Today's Communication/Plan
-
see plan
Assessment / Plan
Assessment / Plan
Gen: NAD, AAOx3.
Eyes: EOMI, PERRLA, no scleral icterus.
Neck: supple.
CV: continues to remain RRR, +S1/S2, no m/r/g.
Resp: continues to remain CTAB, no rales, wheezes, or rhonchi.
Abd: continues to remain +BS, soft, NT, ND
Skin: No rashes.
Neuro: CN 2-12 intact, non-focal.
Psych: Normal mood and affect.
ECG (read by me): V-paced at 108
Echo: EF 40-45%. Akinesis/dyskinesis of the apical regions; no LV thrombus present (contrast agent used). Severe basal inferior hypokinesis. Abnormal (paradoxical) septal motion consistent with RV pacemaker. Normal right ventricular size and
function. Pacer wire seen in right ventricle. Severely dilated left atrium. Moderate mitral stenosis; peak/mean gradients are 17/7 mmHg. Mild aortic stenosis; peak/mean gradients 21/11 mmHg. Compared to previous echo on 08/20/2024, there is a decline
in LVEF (previously 50%).
Cardiac cath:
1. Right dominant circulation with a 30% lesion in the ostium of the RPDA followed by a patent stent with 20% ISR, a 30-40% lesion in the distal RCA at the crux and a 70% lesion in the ostium of the RPDA, a hazy, 80-90% lesion in the proximal
circumflex, and extremely short left main leading to nonselective imaging of the LAD, demonstrating a 70+ percent lesion in the ostium/proximal margin of the vessel with dampening of the catheter on engagement, and 90% lesion in the mid vessel
originating at the origin of D1.
2. Moderately elevated filling pressures (LVEDP = 20 mmHg, PCWP = 20 mmHg at 102.1 kg).
3. Mild postcapillary pulmonary hypertension (mean PA = 27 mmHg, PCWP = 20 mmHg, cardiac output = 5.04 L/min, PVR = 1.39 Hernández units), WHO group 2.
4. At least moderate aortic valve stenosis (mean gradient 23.3 mmHg on pullback, LILIBETH = 1.04 cm�).
5. No evidence of meaningful mitral valve stenosis.
Elevated trop/ACS:
-cont heparin gtt ACS protocol
-trop peaked at 3.99
-monitor on tele
-echo above
-cards following
-cont BB/ASA/statin
-cath above
-CT surgery recommends CABG. As per my discussion with Dr. Lockwood this could be as early as tomorrow.
Other problems:
Obesity due to excess calories
Essential HTN: cont BB
HLD: cont statin
FULL/heparin gtt
Anticipated Discharge: > 48 hours
Subjective/Interval History
-
Date of Service: January 02, 2025
Denies CP/SOB.
Objective Data
-
Labs:
Laboratory Results
01/02/25 01/02/25 01/02/25
00:11 05:53 06:07
WBC
Hgb
Hct
Plt Count
PT 14.4
INR 1.07
APTT 83.7 H 65.0 H
HCO3 23.2
Sodium 142
Potassium 3.8
Chloride 113 H
Carbon Dioxide 22
BUN 13
Creatinine 0.7
Glucose 109 H
Calcium 9.3
Total Bilirubin 0.8
AST 31
ALT 18
Alkaline Phosphatase 81
01/02/25 01/02/25
06:46 13:10
WBC 9.1
Hgb 11.7 L
Hct 37.1 L
Plt Count 198
PT
INR
APTT Pending
HCO3
Sodium
Potassium
Chloride
Carbon Dioxide
BUN
Creatinine
Glucose
Calcium
Total Bilirubin
AST
ALT
Alkaline Phosphatase
Vital Signs:
Vital Signs
Temp Pulse Resp BP Pulse Ox
98.3 F 95 20 142/53 96
01/02/25 06:47 01/02/25 04:59 01/02/25 06:47 01/02/25 04:53 01/02/25 06:47
I&O
01/01/25 01/02/25 01/03/25
06:59 06:59 06:59
Intake Total 850 / 850 759 / 759
Balance 850 / 850 759 / 759
[2025-01-02] MEDS: TOPROL XL 25 MG PO (08:00)
[2025-01-02] MEDS: CYMBALTA DELAYED RELEASE 60 MG PO (08:00)
[2025-01-02] MEDS: PROTONIX 40 MG PO (08:00)
[2025-01-02] MEDS: VITAMIN B-12 1000 MCG PO (08:00)
[2025-01-02] MEDS: CELEXA 30 MG PO (08:00)
--- NOTE | 2025-01-02 08:02 | W.PN.CD ---
Today's Communication / Plan
-
CT surgery consult.
Impression / Plan
-
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
Outpatient pneumatic tool operator: Dr. Grant
#NSTEMI
-Acute.
-EKG is paced.
-Initial high sensitivity TnI 222, increased to 921 prior to transfer. Troponin peaked at 3.990.
-Echo shows apical akinesis/dyskinesis, new severe inferior basal hypokinesis and reduced LVEF (now 40-45%).
-Cath shows significant MV CAD (70+% ostial LAD, 90% mLAD, 80-90% pLCx and 70% ostial RPDA).
-CT surgery consulted for their opinion. There are likely multiple avenues available, including traditional CABG (which offers the benefit of likely MAZE, LAAE, AVR?), complete percutaneous revascularization (accepting a higher risk due to short
LMCA) and a hybrid procedure, as it appears that the distal LAD is healthy and the LCx/RCA lesions could be treated percutaneously.
-Continue aspirin, atorvastatin, heparin gtt, metoprolol.
#Cardiomyopathy
-Worsening, LVEF now 40-45%.
-Coronary angiography today.
-GDMT
-Diuretics: None. LVEDP moderately elevated. I would prefer to be conservative as we discuss revascularization options.
-Beta blockers: Metoprolol succinate 25 mg BID.
-ACEI/ARB/ARNi: Hold pending possible sugery.
-MRA: Hold pending possible sugery.
-SGLT2i: Hold pending possible sugery.
-ICD: PPM in place. ICD not currently indicated.
#Hypertension
-Chronic, stable.
-Continue metoprolol.
#Paroxysmal atrial fibrillation/SSS (syncope)
-Chronic, s/p PPM, currently paced.
-4-hour episode of AF 09/10/2024 on device.
-Rate/rhythm control with metoprolol.
-[id number]: score at least 4 (HTN, age 75 or more, Vascular disease).
-Oral anticoagulation: Heparin gtt.
#NSVT
- Stable without palpitations
- Most recent episode 11/22/2024.
#Hyperlipidemia
-Chronic, stable.
-Total cholesterol = 115, LDL = 46, HDL = 44, Triglycerides = 126.
-Continue atorvastatin.
#Mild/moderate Aortic stenosis
-Chronic.
-Peak/mean gradients 24/12 mmHg on echo, 23.3 mmHg on pullback during cath.
#Moderate Mitral stenosis
-No meaningful gradient at cath.
#NIDDM2
-New diagnosis.
-HbA1c = 6.6%.
-He would benefit from GLP-1 analog given diagnosis of CAD.
#Obesity
-Chronic, BMI 37.
-He would benefit from weight loss - including GLP-1 analog.
Subjective/Interval History:
Cath shows multivessel disease, including 70+% ostial LAD, 80-90% pLCx, 90% mLAD and 70% ostial RPDA, moderate on pullback and moderately elevated filling pressures.
Patient was off floor for testing.
DATA:
Transthoracic echocardiogram, 12/31/2024:
CONCLUSIONS
-Left ventricular ejection fraction is 40-45%. Akinesis/dyskinesis of the
apical regions; no LV thrombus present (contrast agent used). Severe basal
inferior hypokinesis. Abnormal (paradoxical) septal motion consistent with RV
pacemaker.
-Normal right ventricular size and function. Pacer wire seen in right
ventricle.
-Severely dilated left atrium.
-Moderate mitral stenosis; peak/mean gradients are 17/7 mmHg.
-Mild aortic stenosis; peak/mean gradients 21/11 mmHg.
Cardiac Catheterization, 01/01/2025:
CONCLUSIONS:
1. Right dominant circulation with a 30% lesion in the ostium of the RPDA followed by a patent stent with 20% ISR, a 30-40% lesion in the distal RCA at the crux and a 70% lesion in the ostium of the RPDA, a hazy, 80-90% lesion in the proximal
circumflex, and extremely short left main leading to nonselective imaging of the LAD, demonstrating a 70+ percent lesion in the ostium/proximal margin of the vessel with dampening of the catheter on engagement, and 90% lesion in the mid vessel
originating at the origin of D1.
2. Moderately elevated filling pressures (LVEDP = 20 mmHg, PCWP = 20 mmHg at 102.1 kg).
3. Mild postcapillary pulmonary hypertension (mean PA = 27 mmHg, PCWP = 20 mmHg, cardiac output = 5.04 L/min, PVR = 1.39 Hernández units), WHO group 2.
4. At least moderate aortic valve stenosis (mean gradient 23.3 mmHg on pullback, LILIBETH = 1.04 cm�).
5. No evidence of meaningful mitral valve stenosis.
6. Of note, after reviewing the films, we suffered a significant failure of the flat panel imaging system. Thankfully, the procedure was complete and the patient was removed from the table.
Physical Exam
Vital Signs/Labs
Vital Signs
Temp Pulse Resp BP Pulse Ox
36.8 C 95 20 142/53 96
01/02/25 06:47 01/02/25 04:59 01/02/25 06:47 01/02/25 04:53 01/02/25 06:47
12/31/24 01/01/25 01/02/25
11:59 11:59 11:59
Actual Weight 102.1 kg 101.5 kg
01/02/25 06:46
01/02/25 06:07
PT 14.4 Sec (11.4-14.6) 01/02/25 06:07
INR 1.07 01/02/25 06:07
APTT 65.0 Sec (23.4-35.0) H 01/02/25 06:07
Triglycerides 126 mg/dl (10-149) 01/01/25 04:36
LDL Cholesterol, Calc 46 mg/dl 01/01/25 04:36
VLDL Cholesterol, Calc 25 mg/dl (0-30) 01/01/25 04:36
HDL Cholesterol 44 mg/dl 01/01/25 04:36
LAB Results
12/31/24 12/31/24 12/31/24
15:22 18:14 21:49
Troponin I 1.820 H* 3.020 H* D 3.990 H* D
01/01/25
04:36
Troponin I 3.270 H*
Physical Exam
Physical exam deferred as the patient is off the floor for testing.
Data Reviewed
-
Date of Service: January 02, 2025
Medical Decision Making: Reviewed Test Results and Test Interpretation
EKG: Tracing Personally Visualized and interpreted and Report Reviewed by me
Echo: Tracing Personally Visualized and interpreted and Report Reviewed by me
X-Ray/CT/US/MRI/NUC/PET: Image Personally Visualized and interpreted and Report Reviewed by me
Medical Tests (PFT, Pathology etc): Image Personally Visualized and interpreted, Report Reviewed by me, Discussed with Physician, Discussed with Patient and Discussed with Family
Labs: Labs Reviewed by me
Old Records: Reviewed
[2025-01-02] MEDS: LOW STRENGTH ASPIRIN 81 MG PO (08:04)
--- NOTE | 2025-01-02 14:23 | CM ---
Reviewed preoperative and postoperative instructions and restrictions, along with showering guidelines. Patient is agreeable to a home visit by CT Transitional RN. Gave patient Cardiac Surgery Book. Plan is for the patient to return home with CT
Transitional RN. Patient is independent of ADLS, lives with his in a 2 STH, 1st level set up, 0 AUDREY, ambulates with a RW and a SPC and also has a scooter for long distances. CM to follow
[2025-01-02 14:34] LABS: APTT 100.9 Sec (23.4-35.0)
--- NOTE | 2025-01-02 15:58 | PTCARENOTE ---
Pt ambulating in halls, mild RUIZ, sheila well. IV heparin drip infusing. Pt denies pain.
[2025-01-02] MEDS: LIPITOR 40 MG PO (18:19)
--- NOTE | 2025-01-02 18:37 | W.PN.UPDATE ---
Update Note
Progress Note Update
STS RISK SCORE
Procedure Type:�Isolated CABG
Perioperative Outcome Estimate %
Operative Mortality 3.24%
Morbidity & Mortality 11.3%
Stroke 1.58%
Renal Failure 2.35%
Reoperation 2.03%
Prolonged Ventilation 7.22%
Deep Sternal Wound Infection 0.265%
Long Hospital Stay (>14 days) 8.58%
Short Hospital Stay (<6 days)* 24.1%
Clinical Summary
Planned Surgery: Isolated CABG, Urgent, First cardiovascular surgery
Demographics: 84 year old, male, 101.5kg, 165cm, BMI: 37.3 kg/m�
Lab Values: Creatinine: 0.7 mg/dL, Hematocrit: 37.1%, WBC Count: 9.1 10�/�L, Platelet Count: 130973 cells/�L
Substance Abuse: Never smoker, Alcohol use: 2-7 drinks/week
Risk Factors / Comorbidities: Diabetes Mellitus , Hypertension
Cardiac Status: NYHA Class II, Ejection Fraction = 57%
Coronary Artery Disease: 3 vessels diseased, Proximal LAD Stenosis >=70%, Non-ST Elevation KS, KS: 1 to 7 Days
Valve Disease: Mild MR
Arrhythmia: Recent A-fib, Persistent, Remote Sick Sinus Syndrome
Prev. Cardiac Interv: Previous PCI: Not during this episode of care
[2025-01-02 21:28] LABS: APTT 101.6 Sec (23.4-35.0)
[2025-01-02] MEDS: DESENEX/MITRAZOL/ZEASORB 1 APPLIC TOPICAL (23:13)
--- NOTE | 2025-01-02 23:49 | PTCARENOTE ---
PM prep completed and pt assessed by SULAIMAN. fabiano MOROCHO noted both groins. Desnex powder applied for tonight.
[2025-01-03] VITALS (19 sets, daily range): BP systolic 104–159; BP diastolic 58–90; PULSE 2–73; BMI 36.1
[2025-01-03 05:05] LABS: Hematocrit 37.5 % (39.0-52.0); Hemoglobin 12.1 g/dL (13.0-18.0); Mean Corp Hgb Conc. 32.3 g/dL (33.0-37.0); Mean Corpuscular Volume 83.1 fL (80.0-94.0); Platelet Count 212 10^3/uL (130-400); Red Cell Dist. Width 16.4 % (11.5-14.5)
[2025-01-03 05:18] LABS: APTT 129.6 Sec (23.4-35.0)
[2025-01-03] MEDS: PROTONIX 40 MG PO (05:59)
[2025-01-03] MEDS: LOPRESSOR 25 MG PO (05:59)
[2025-01-03] MEDS: BACTROBAN 2% OINTMENT 1 APPLIC NASAL ×2 (05:59→19:48)
[2025-01-03] MEDS: MAGNESIUM OXIDE 500 MG PO (06:00)
--- NOTE | 2025-01-03 06:46 | PTCARENOTE ---
AM prep completed. Pt transport to CVOR via CV bed.
[2025-01-03 07:41] LABS: ACT+ - POC 140 Seconds (82-134)
[2025-01-03 07:46] LABS: Urine Character Clear (Clear)
--- NOTE | 2025-01-03 08:12 | W.CVOR.SURPR ---
CVOR Surgeon Immed Pre Op
-
I have examined this patient prior to performance of the scheduled procedure.
The patient's condition is unchanged from the time of the dictated/written History and
Physical and the patient is able to undergo the scheduled procedure.
[2025-01-03 08:13] LABS: Urine Red Blood Cell 26-30 /HPF (0-2)
[2025-01-03 08:14] LABS: Urine White Cell 0-2 /HPF (0-5)
[2025-01-03 09:59] LABS: B.E. - POC -5.1 mmol/L; Glucose - POC 188 mg/dl (70-99); HCO3 - POC 24 mmol/L (21-28); Hematocrit - POC 36 % PCV (42-52); Hemodilution- POC No; Hemoglobin Calculated - POC 12.2; Ionized Calcium - POC 1.31 mmol/L (1.15-1.33); Lactate - POC 0.81 mmol/L (0.36-0.75); O2 Saturation %Calculated-POC 96.4 % (94-98); PCO2 - POC 65 mmHg (35-48); PO2 - POC 109 mmHg (83-108); Potassium - POC 3.8 mmol/L (3.5-5.1); Sodium - POC 145 mmol/L (136-145); Specimen Type - POC Arterial; pH - POC 7.18 (7.35-7.45)
[2025-01-03 10:01] LABS: ACT+ - POC 454 Seconds (82-134)
[2025-01-03 10:59] LABS: ACT+ - POC 137 Seconds (82-134)
--- NOTE | 2025-01-03 11:00 | W.PN.CT.SURG ---
CT Surgery Operative Note
-
CARDIAC SURGERY OPERATIVE REPORT
Preoperative Diagnosis: Coronary Artery Disease with proximal LAD involvement
Postoperative Diagnosis: Same
Procedure(s) Performed:
1. Robotic assisted MIDCAB (single-vessel bypass JACKMAN in situ to LAD)
2. Robotic assisted harvest of internal mammary artery with anterolateral mini thoracotomy for CABG
3. Transesophageal echocardiography
4. Transonic Flowprobe assessment of JACKMAN graft
Date of Surgery: 01/03/2025
Comorbidities:
1. Coronary artery disease involving the proximal LAD
2. Moderate aortic valve stenosis
3. Morbidly obese with a BMI of 36
4. Bifascicular block
5. NSTEMI/ACS
6. NSVT
7. Syncope
8. Previous PR with stenting
9. Tobacco abuse
10. Hyperlipidemia
11. Hypertension
Attending Surgeon: Yvon Lockwood MD, MS
Assistants: Yvon Hickman PA-C (present and necessary to assistant baseball coach, exchanging robotic instruments, retraction, suction, exposure, suture management, and wound closure under my direction)
Anesthesiology: Yariel Carlson MD and Yakov Talley CRNA
Scrub and Circulating RNs: Kyung Valladares, MARCIA, Tristian Carrera, MARCIA
Content Director: Chidi Wray CCP
Anesthesia: GETA
EBL: per perfusion records
Products: None, 250-300 of CellSaver Blood from the field
Indication(s) for Procedures: This is a 84-year-old male who presented with an NSTEMI. He has a significant history for cardiovascular disease with previous PCI. Given his age and morbidities, hybrid revascularization was planned out with initial
JACKMAN to LAD bypass grafting followed by stenting to the residual coronary disease. The STS risk was discussed with the patient in the office and the shared decision making was to pursue a single-vessel bypass using his mammary artery to his LAD via
a mini invasive approach.
Conduit(s) Quality/Internal Diameter:
JACKMAN -excellent, flow probe analysis, 38 cc/min, PI of 5.1
Target(s) Quality/Internal Diameter:
LAD -excellent, large/target easily accommodated 2.0 mm shunt
Findings: His left ventricular ejection fraction preoperatively was 60% with no significant regional wall motion abnormalities. Following surgery his EF remained the same at 60%. There were no new regional wall motion abnormalities at the inclusion
of the case. The JACKMAN was harvested in a skeletonized fashion. The mammary graft was verified with Doppler probe to have excellent signals. He did have some hemopericardium upon entry into the pericardium. This is likely secondary to his workup
and NSTEMI.
Description of Procedure: The patient was taken to the operating room. Their identity and procedure to be performed were verified and they were positioned supine on the operating table. Induction via general anesthesia with endotracheal intubation
was performed and central venous access and arterial monitoring were inserted. A preoperative transesophageal echocardiogram was performed to assess cardiac function and valvular function. The patient was then prepped and draped from chin to feet in
a sterile fashion and positioned with left side bumped up and left arm down. A preoperative time-out was performed with all members of the team present. A Veress needle was used to enter the chest after stopping ventilation with the left lung
verified by anesthesia. We started with slow pressure insufflation which they tolerated. An 8 mm port was inserted in the fourth intercostal space laterally and a camera was inserted verifying no intrathoracic iatrogenic injuries. 2 additional
ports(8 mm and 8mm) were placed along the midaxillary line on either side of the camera port. Single 12 mm air seal port was used for the assistant operator to pass instruments and sutures. The robotic platform was then docked and targeted towards the
mammary. The mammary was harvested in a skeletonized fashion. A posterior pericardiotomy was created to facilitate drainage. Once sufficient length was obtained, an anterior pericardiotomy was created to identify the distal target. This was marked
with a marker robotically. Full heparinization was given (a total of 35,000 units). 4 Hem-o-cam clips were used to occlude and divide the mammary distally at its bifurcation, and a single silk suture and clip was used to secure the mammary to the
pericardium overlying the LAD target. The robot platform was then undocked and the patient and a left anterior thoracotomy was created over the target vessel. Upon entering the thoracic cavity the mammary and LAD were visible. A thoracotomy
retractor was placed to facilitate exposure and a pericardial well was created. The ACT was confirmed to be over 400.
The cardiac suction stabilizer was used to isolate the LAD target. The distal end of the mammary was prepped and beveled to size. We verified orientation and length of the MELISSA and found brisk flow. A coronary arteriotomy was created and enlarged
with coronary sanchez scissors. A 2mm shunt was inserted to facilitate exposure and continued port gamble coronary perfusion. An end-to-side anastomosis was created with a 7-0 prolene. The bulldog on the mammary was removed which demonstrated excellent
graft flow. The shunt was then remove and demonstrated excellent port gamble flow. Appropriate hemostasis was confirmed. The mammary graft was inspected and was free from kinking or twisting and flowprobe evaluation demonstrated good flow and PI. A test
dose of protamine was administered and the patient was monitored for any adverse reaction before resuming protamine. A 19F morgan drain into the pericardium and through the posterior pericardiotomy into the left chest. A #2 Ethibond suture was used
to approximate the rib space. Fascia was approximated with #1 vicryl suture. Local analgesia was administered to the surgical sites. The subcutaneous, dermis and epidermis were closed in layers in a running fashion. The skin wound was cleansed and
dressed.
All instrument, sponge, and needle counts were confirmed to be correct x 2 at the end of the operation. The patient was transferred to the cardiac intensive care unit in critical but stable condition.
I, Dr. Yvon Lockwood, was present, scrubbed for, and performed all critical elements of this procedure.
Yvon Lockwood MD, MS
Cardiothoracic Surgeon
[facility]
This operative dictation was created using the QingKe dictation system. Please excuse any grammatical, typographical, or 'sound alike' errors
[2025-01-03 11:01] LABS: B.E. - POC -4.0 mmol/L; Glucose - POC 159 mg/dl (70-99); HCO3 - POC 22 mmol/L (21-28); Hematocrit - POC 27 % PCV (42-52); Hemodilution- POC No; Hemoglobin Calculated - POC 9.3; Ionized Calcium - POC 1.15 mmol/L (1.15-1.33); Lactate - POC 0.68 mmol/L (0.36-0.75); O2 Saturation %Calculated-POC 99.4 % (94-98); PCO2 - POC 45 mmHg (35-48); PO2 - POC 173 mmHg (83-108); Potassium - POC 3.2 mmol/L (3.5-5.1); Sodium - POC 144 mmol/L (136-145); Specimen Type - POC Arterial; pH - POC 7.31 (7.35-7.45)
--- NOTE | 2025-01-03 11:35 | CON.INTV ---
Consultation
Consultation Request
Date/Time Consultation Requested: 01/03/2025 - 1099
Date/Time Consultation Performed: 01/03/2025 - 1126
Requesting Provider: Radha Roman NP
Performing Provider: Dr. Thomas
Reason for Consultation: s/p MIDCAB
Medical History
-
Chief Complaint: Chest pain
History of Present Illness:
84-year-old male with a past medical history of NSVT, CAD s/p BMS (2000), hypertension, hypercholesterolemia and aortic stenosis who initially presented to [facility] with symptoms concerning for angina. He was ruled
in for an NSTEMI and cardiac catheterization was recommended but patient wanted to be transferred to [facility] for further care. Left heart catheterization performed on 01/01/2025 showed multivessel CAD involving the RPDA, distal RCA,
ostium/proximal LAD. There was also elevated filling pressures with LVEDP: 20 mmHg, PCWP: 20 mmHg. PA pressure was 37/22 with TPG 7 mmHg. PVR was WNL at 1.39 Wood units with CO/CI 5.04/2.43, respectively. Cardiothoracic surgery was consulted and
the patient was recommended for surgical revascularization which he agreed to. Today patient underwent robotic assisted MIDCAB with single-vessel bypass JACKMAN in situ to LAD. Patient tolerated the procedure well, and was transferred to the CVICU
postoperatively for further care. [employer] A[employer] services consulted for additional management/recommendations.
When I saw the patient he was resting in bed, saturating 98% on 6 L/min. He had already been extubated in the CVOR. Heart rate 80, BP via A-line 91/63, PAP 38/19, BP via NIBP: 121/65, CO/CI 5.99/2.92, respectively. Currently on insulin drip at
2.3 units/hr. He has a mediastinal chest tube x 1. He has discomfort in his chest as well as his back. He denies SOB, SAUCEDA, nausea, fevers or chills.
PMHx: CAD s/p stent to RCA, BPH, hyperlipidemia, arthritis, bifascicular block, history of diverticulitis, history of SVT, kidney stones
PSHx: Polypectomy, pacemaker insertion, sigmoid resection for diverticulitis with colostomy and subsequent reversal (1986), tonsillectomy, incisional hernia repair, coronary stent insertion
Past Medical History
Past Medical History: Other (Above as per HPI)
Past Surgical History: Other (Above as per HPI)
Social History
Tobacco: Non-smoker
Alcohol: None
Drug: None
Family History
Family History: Other (Father: Stroke)
Allergies / Home Medications
Allergies
Allergy/AdvReac Type Severity Reaction Status Date / Time
No Known Allergies Allergy Verified 11/13/20 08:50
Home Medications
�Medication �Instructions �Recorded �Confirmed �Last Taken �Type
Lactobacillus comb 1 cap PO BID PRN prn 06/23/15 12/31/24 06/22/15 History
no.7-IQU-zkezyordrr 300 million
cell-250 mg capsule (Probiotic and
Acidophilus)
alfuzosin 10 mg tablet,extended 20 mg PO HS 06/23/15 12/31/24 12/30/24 20:00 History
release 24 hr
ascorbic acid (vitamin C) 1,000 mg 1,000 mg PO DAILY 06/23/15 12/31/24 12/30/24 History
tablet (Vitamin C)
aspirin 81 mg tablet,delayed 81 mg PO DAILY 06/23/15 12/31/24 12/30/24 20:00 History
release
atorvastatin 40 mg tablet 40 mg PO HS 06/23/15 12/31/24 12/29/24 History
citalopram 20 mg tablet 30 mg PO DAILY 06/23/15 12/31/24 06/22/15 19:00 History
mecobalamin (vitamin B12) 1,000 1,000 mcg sublingual DAILY 06/23/15 12/31/24 12/30/24 20:00 History
mcg disintegrating
tablet,sublingual
metoprolol tartrate 25 mg tablet 25 mg PO DAILY 06/23/15 12/31/24 12/30/24 20:00 History
nitroglycerin 0.4 mg sublingual 1 spry sublingual PRN PRN chest 06/23/15 12/31/24 06/17/15 History
tablet pain
omeprazole 20 mg capsule,delayed 20 mg PO DAILY 06/23/15 12/31/24 12/30/24 20:00 History
release (Prilosec)
oxycodone-acetaminophen 5 mg-325 1 tab PO Q4HPRN PRN MODERATE PAIN 06/24/15 12/31/24 Unknown Rx
mg tablet ##20
zinc sulfate 50 mg zinc (220 mg) 220 mg (4.4 x 50 mg zinc (220 mg)) 08/11/21 12/31/24 12/30/24 20:00 Rx
capsule PO DAILY #14 caps
celecoxib 200 mg capsule (Celebrex) 200 mg PO DAILY 12/31/24 12/31/24 Unknown History
duloxetine 60 mg capsule,delayed 60 mg PO DAILY 12/31/24 12/31/24 12/30/24 20:00 History
release
tramadol 50 mg tablet 50 mg PO Q6H PRN arthritis pain 12/31/24 12/31/24 Unknown History
Review of Systems
-
History Source: Patient
All other systems: Negative unless noted
Vitals / Labs / Diagnostic Testing
Vital Signs
Temp Pulse Resp BP Pulse Ox
99.7 F 91 15 135/70 97
01/03/25 21:00 01/03/25 21:05 01/03/25 21:05 01/03/25 21:00 01/03/25 21:05
Lab Data
01/03/25 15:52
01/03/25 11:42
Laboratory Results
01/03/25 01/03/25 01/03/25
04:53 11:42 13:10
PT 17.0 H
INR 1.35
APTT 129.6 H
pH 7.24 L 7.29 L
pCO2 56 H 50 H
pO2 95 107
HCO3 24.0 24.0
O2 Delivery Level Not Reportable Not Reportable
01/03/25
20:27
PT
INR
APTT
pH 7.34 L
pCO2 39
pO2 105
HCO3 21.0
O2 Delivery Level 6l
Microbiology
12/31/24 17:24 Nose MRSA Screen - Final
No Methicillin Resistant Staphylococcus aureus isolated.
Diagnostic Testing:
Physical Exam
-
HEENT: Normocephalic, Anicteric and Other (Thick neck)
Cardiovascular: S1/S2 and Peripheral Edema (Trace lower extremity edema bilaterally)
Respiratory: Clear, Wheeze (negative), Rales (negative), Rhonchi (negative), Non-Labored Respirations and Other (Mediastinal chest tube x 1)
GI: Soft, Distended (Abdominal obesity), Non Tender and Normal Bowel Sounds
Neurology: AO x 3 and Tremors (negative)
Skin: Warm and Dry
General: Respiratory Distress (negative), Comfortable, Fever (negative) and Chills (negative)
Assessment
-
Assessment: 84-year-old male with a past medical history of NSVT, CAD s/p BMS (2000), hypertension, hypercholesterolemia and aortic stenosis who initially presented to [facility] with symptoms concerning for angina.
He was ruled in for an NSTEMI and cardiac catheterization was recommended but patient wanted to be transferred to [facility] for further care. Left heart catheterization performed on 01/01/2025 showed multivessel CAD involving the RPDA,
distal RCA, ostium/proximal LAD. There was also elevated filling pressures with LVEDP: 20 mmHg, PCWP: 20 mmHg. PA pressure was 37/22 with TPG 7 mmHg. PVR was WNL at 1.39 Wood units with CO/CI 5.04/2.43, respectively. Cardiothoracic surgery was
consulted and the patient was recommended for surgical revascularization which he agreed to. Today patient underwent robotic assisted MIDCAB with single-vessel bypass JACKMAN in situ to LAD. Patient tolerated the procedure well, and was transferred
to the CVICU postoperatively for further care. [employer] Aide services consulted for additional management/recommendations.
Chronic conditions [employer]: CAD s/p stent to RCA, BPH, hyperlipidemia, arthritis, bifascicular block, history of diverticulitis, history of SVT, kidney stones
Impression:
#CAD with proximal LAD involvement s/p robotic assisted MIDCAB (single-vessel bypass JACKMAN in situ to LAD) � POD #0
#Anemia
#DM type II complicated by hyperglycemia (HbA1c: 6.6 on 12/31/2024)
#History of coronary stent to proximal RCA complicated by 20% in-stent restenosis (per [facility] on 01/01/2025)
#Acute HFmrEF
#Valvular heart disease with moderate mitral stenosis and mild aortic stenosis
#Bifascicular block
#BPH
#Nephrolithiasis
Plan:
Patient had already been extubated in the CVOR, and is currently breathing comfortably on 6 L/min nasal cannula saturating 98%
Continue to wean down supplemental O2 flow rate to maintain SpO2 >90-94%
prn nebulized bronchodilators - not currently bronchospastic
Encourage incentive spirometer (as chest discomfort tolerates) with goal q1hr while awake
Pulmonary artery catheter parameters will be followed
Pressors/antihypertensive/inotropes/diuretics will be provided as needed
Maintain MAP>65
Replete electrolytes with K>4, Mg>2
Monitor chest tube output (mediastinal chest tube x 1)
Monitor hemoglobin
Monitor platelet count and coags
Transfuse blood products as needed to maintain Hb>7g/dL, plt>50k (given post-operative status)
CT surgery managing chest tubes
Monitor blood sugar to maintain euglycemia with goal BG 110-140
Insulin drip per protocol
Aspiration precautions
DVT prophylaxis
Early nutrition
Early mobilization
Critical care statement: A total of 42 minutes of critical care time was provided for this patient today. This includes management of ventilator, spontaneous breathing trial, arterial blood gases, pressors, of unstable vital signs, evaluation of the
patient at bedside, reviewing the patient's pertinent medical records including radiographs, microbiology, laboratory evaluations, and discussion with primary team and critical care nursing.
Data:
Transthoracic echocardiogram 12/31/2024:
-Left ventricular ejection fraction is 40-45%. Akinesis/dyskinesis of the
apical regions; no LV thrombus present (contrast agent used). Severe basal
inferior hypokinesis. Abnormal (paradoxical) septal motion consistent with RV
pacemaker.
-Normal right ventricular size and function. Pacer wire seen in right
ventricle.
-Severely dilated left atrium.
-Moderate mitral stenosis; peak/mean gradients are 17/7 mmHg.
-Mild aortic stenosis; peak/mean gradients 21/11 mmHg.
Compared to previous echo on 08/20/2024, there is a decline in LVEF (previously
50%).
[2025-01-03 11:47] LABS: Glucose - Point of Care 168 mg/dl (70-99)
[2025-01-03 11:58] LABS: Hematocrit 36.8 % (39.0-52.0); Hemoglobin 11.6 g/dL (13.0-18.0); Platelet Count 195 10^3/uL (130-400)
[2025-01-03 12:00] LABS: B.E. -3.9 mmol/L; HCO3 24.0 mmol/L (21-28); O2 Saturation % 97.3 % (94-98); PCO2 56 mmHg (35-48); PO2 95 mmHg (83-108); Potassium 3.8 mMOL/L (3.5-5.1); Sodium 137 mMOL/L (136-145)
[2025-01-03 12:09] LABS: INR 1.35; PT 17.0 Sec (11.4-14.6)
[2025-01-03 12:20] LABS: Blood Urea Nitrogen 18 mg/dl (9-20); Estimated Creatinine Clearance 88 ml/min; Glucose 169 mg/dl (70-99); Magnesium 2.1 mg/dl (1.6-2.3)
--- NOTE | 2025-01-03 12:32 | PTCARENOTE ---
Pt received from CVOR ~1145. Pt to room 2261. Pt extubated prior to arrival to CVICU. Pt drowsy and restless. Pt able to follow simple commands. Pt Intermittently v-paced on the monitor. Pt has PPM. HR 70s. Heart tones audible. CVP~11. PAPs 30s/20s.
CI>2. BPs 120s/60s. Order to keep SBP's 90-130. Palpable pulses throughout. Pt received on 8 L simple mask. POX 94%. Based on ABG - pt placed on Bipap on RT per CTPA. Mediastinal CTx1 to
-20 suction, no airleak noted, and output WNL. Lung sounds diminished anteriorly. Abdomen round. Hypoactive BS. Cisneros catheter in place. Upon arrival to CVICU OU bloody/clotted. Catheter irrigated w/ 20 ml saline. Right IJ cordis w/ SWAN intact.
Right radial a-line in place. All lines leveled, zeroed, and flushed. Left upper chest (under breast) incision approximated w/ surgical adhesive and DRIVEWAY ATTENDANT. Left lateral upper chest scattered incisions approximated w/ surgical adhesive and RATNA.
Glycemic protocol followed. Labs drawn and sent. EKG / xray completed. See worklist for full nursing assessment and interventions.
--- NOTE | 2025-01-03 12:40 | CM ---
pt in OR today, cm to follow
[2025-01-03] MEDS: ANCEF 10 IV ×2 (12:50)
[2025-01-03] MEDS: VITAMIN B-12 PO (12:51)
[2025-01-03] MEDS: CYMBALTA DELAYED RELEASE PO (12:52)
[2025-01-03] MEDS: CELEXA PO (12:52)
[2025-01-03] MEDS: PROTONIX PO (12:52)
[2025-01-03] MEDS: NEURONTIN PO (12:53)
[2025-01-03] MEDS: NSS 500 IV (12:53)
[2025-01-03] MEDS: TOPROL XL PO (12:54)
[2025-01-03] MEDS: LOW STRENGTH ASPIRIN PO (12:54)
[2025-01-03] MEDS: KCL 50 IV ×2 (12:54→14:14)
[2025-01-03 13:05] LABS: Glucose - Point of Care 136 mg/dl (70-99)
--- NOTE | 2025-01-03 13:18 | PN.DE.MGMTRT ---
Insulin Management
- -
01/03/2025: Diabetes Management Consult
84 year old male with PMH: CAD (IMI with BMS 2000), PAF/ SSS syncope s/p PPM, Cardiomyopathy with worsening LVEF now 40-45%, HTN, HLD, moderate , NSVT and new dx T2DM. Pt was transferred from [facility] with ACS-->NSTEMI. Cath showed significant
MV CAD--> OR for CABG today.
Pt is newly dx with T2DM, A1C is 6.6%, Cr 0.7, eGFR >60. No record of any diabetes medications prior to admission.
Pt just returned from the OR, s/p CABG today, he is drowsy and sleepy, unable to discuss diabetes care plan.
He was started on insulin infusion intra-op and will be continued on Critical care Glycemic protocol, with target goal 110-140mg/dL for 48 post -op.
Will follow up with pt on Monday.
Consider giving 1 time dose of basal insulin prior to d/c of insulin drip.
Will need to initiate SGLT2 and Metformin upon transition. Will order both for Monday morning. Will ask CM to check for cost of SGLT2
Diabetes History
- -
Type of Diabetes: 2
Pre-Admission Diabetes Regimen
01/03/25
11:42
Creatinine 0.7
Lab Results
Hemoglobin A1c 6.6 % (4.0-5.6) H 12/31/24 15:22
Insulin Pump Settings
IP Diabetes Regimen
01/03/25 01/03/25 01/03/25
11:42 11:46 13:03
Glucose 169 H
POC Glucose 168 H 136 H
Patient Education
[2025-01-03 13:20] LABS: B.E. -2.9 mmol/L; HCO3 24.0 mmol/L (21-28); O2 Saturation % 98.0 % (94-98); PCO2 50 mmHg (35-48); PO2 107 mmHg (83-108); Potassium 3.7 mMOL/L (3.5-5.1)
[2025-01-03 14:09] LABS: Glucose - Point of Care 118 mg/dl (70-99)
[2025-01-03] MEDS: TYLENOL PO (14:15)
[2025-01-03] MEDS: OFIRMEV 100 IV (14:32)
[2025-01-03 15:10] LABS: Glucose - Point of Care 111 mg/dl (70-99)
--- NOTE | 2025-01-03 15:32 | W.PN.CD ---
Addendum entered and electronically signed by Francisco Lyons MD 01/03/25 16:47:
84 yo male with PMH of CAD, prior stent 2010, is admitted with NSTEMI and is now s/p MIDCAB today (JACKMAN to LAD). He is already awake and extubated. Exam with RRR, no murmurs, no edema. Tele: sinus rhythm.
CAD. Continue ASA 81mg. As long as stable, plan will be Plavix load over , then PCI on Monday.
Original Note:
Today's Communication / Plan
-
Postop management per CT surgery
Impression / Plan
-
Impression/Plan: 84M with CAD (IMI with BMS 2000), syncope with bifascicular block status post PPM, hypertension, dyslipidemia, aortic stenosis, and NSVT transferred from [facility] with ACS
Outpatient lens inserter: Dr. Grant
#NSTEMI s/p robotic assisted MIDCAB (single-vessel JACKMAN in situ to LAD) on 01/03/[address] Lockwood
-EKG is paced.
-Pre-LVEF 60%, post LVEF 60% (TTE showed LVEF 40-45%), can consider limited study prior to discharge
-Initial high sensitivity TnI 222, increased to 921 prior to transfer. Troponin peaked at 3.990.
-Echo shows apical akinesis/dyskinesis, new severe inferior basal hypokinesis and reduced LVEF (now 40-45%).
-Cath showed significant MV CAD (70+% ostial LAD, 90% mLAD, 80-90% pLCx and 70% ostial RPDA).
Hematuria, follow
#Cardiomyopathy
-Worsening, LVEF now 40-45%.
-Coronary angiography today.
-GDMT
-Diuretics: None. LVEDP moderately elevated.
-Beta blockers: Metoprolol succinate 25 mg BID.
-ACEI/ARB/ARNi: Hold pending surgery.
-MRA: Hold pending surgery.
-SGLT2i: Hold pending surgery.
-ICD: PPM in place. ICD not currently indicated.
#Hypertension
-Chronic, stable.
-Continue metoprolol.
#Paroxysmal atrial fibrillation/SSS (syncope)
-Chronic, s/p PPM, currently paced.
-4-hour episode of AF 09/10/2024 on device.
-Rate/rhythm control with metoprolol.
-[id number]: score at least 4 (HTN, age 75 or more, Vascular disease).
-Oral anticoagulation: Resume per CT surgery
#NSVT
- Stable without palpitations
- Most recent episode 11/22/2024.
#Hyperlipidemia
-Chronic, stable.
-Total cholesterol = 115, LDL = 46, HDL = 44, Triglycerides = 126.
-Continue atorvastatin.
#Mild/moderate Aortic stenosis
-Chronic.
-Peak/mean gradients 24/12 mmHg on echo, 23.3 mmHg on pullback during cath.
#Moderate Mitral stenosis
-No meaningful gradient at cath.
#NIDDM2
-New diagnosis.
-HbA1c = 6.6%.
-He would benefit from GLP-1 analog given diagnosis of CAD.
#Obesity
-Chronic, BMI 37.
-He would benefit from weight loss - including GLP-1 analog.
Subjective/Interval History:
Op report reviewed.
DATA:
Transthoracic echocardiogram, 12/31/2024:
CONCLUSIONS
-Left ventricular ejection fraction is 40-45%. Akinesis/dyskinesis of the
apical regions; no LV thrombus present (contrast agent used). Severe basal
inferior hypokinesis. Abnormal (paradoxical) septal motion consistent with RV
pacemaker.
-Normal right ventricular size and function. Pacer wire seen in right
ventricle.
-Severely dilated left atrium.
-Moderate mitral stenosis; peak/mean gradients are 17/7 mmHg.
-Mild aortic stenosis; peak/mean gradients 21/11 mmHg.
Cardiac Catheterization, 01/01/2025:
CONCLUSIONS:
1. Right dominant circulation with a 30% lesion in the ostium of the RPDA followed by a patent stent with 20% ISR, a 30-40% lesion in the distal RCA at the crux and a 70% lesion in the ostium of the RPDA, a hazy, 80-90% lesion in the proximal
circumflex, and extremely short left main leading to nonselective imaging of the LAD, demonstrating a 70+ percent lesion in the ostium/proximal margin of the vessel with dampening of the catheter on engagement, and 90% lesion in the mid vessel
originating at the origin of D1.
2. Moderately elevated filling pressures (LVEDP = 20 mmHg, PCWP = 20 mmHg at 102.1 kg).
3. Mild postcapillary pulmonary hypertension (mean PA = 27 mmHg, PCWP = 20 mmHg, cardiac output = 5.04 L/min, PVR = 1.39 Hernández units), WHO group 2.
4. At least moderate aortic valve stenosis (mean gradient 23.3 mmHg on pullback, LILIBETH = 1.04 cm�).
5. No evidence of meaningful mitral valve stenosis.
6. Of note, after reviewing the films, we suffered a significant failure of the flat panel imaging system. Thankfully, the procedure was complete and the patient was removed from the table.
Physical Exam
Vital Signs/Labs
Vital Signs
Temp Pulse Resp BP Pulse Ox
98.5 F 79 14 104/58 97
01/03/25 15:00 01/03/25 15:15 01/03/25 15:15 01/03/25 15:02 01/03/25 15:18
01/02/25 01/03/25 01/04/25
06:59 06:59 06:59
Actual Weight 101.5 kg 98.3 kg
01/03/25 11:42
01/03/25 11:42
PT 17.0 Sec (11.4-14.6) H 01/03/25 11:42
INR 1.35 01/03/25 11:42
APTT 129.6 Sec (23.4-35.0) H 01/03/25 04:53
Magnesium 2.1 mg/dl (1.6-2.3) 01/03/25 11:42
Triglycerides 126 mg/dl (10-149) 01/01/25 04:36
LDL Cholesterol, Calc 46 mg/dl 01/01/25 04:36
VLDL Cholesterol, Calc 25 mg/dl (0-30) 01/01/25 04:36
HDL Cholesterol 44 mg/dl 01/01/25 04:36
LAB Results
12/31/24 12/31/24 12/31/24
15:22 18:14 21:49
Troponin I 1.820 H* 3.020 H* D 3.990 H* D
01/01/25
04:36
Troponin I 3.270 H*
Physical Exam
Constitutional: No acute distress and Comfortable
EENT: Anicteric and Moist mucous membranes
Cardiovascular: Rhythm & rate is regular and Pedal edema is absent
Respiratory: Respiratory effort normal and Lungs clear to auscul.
GI: Soft, Distention absent, Flat, Non tender and Normal bowel sounds
Neuro/Psych: AO x 3
Other: Skin (Warm and dry)
Data Reviewed
-
Date of Service: January 03, 2025
EKG: Report Reviewed by me
Labs: Labs Reviewed by me
Old Records: Reviewed
[2025-01-03] MEDS: LIDOCAINE URO-JET 2% 1 SYRINGE TOPICAL (16:10)
[2025-01-03 16:11] LABS: Glucose - Point of Care 100 mg/dl (70-99)
--- NOTE | 2025-01-03 16:23 | CM ---
dc plans remain home when medically stable.
[2025-01-03 16:31] LABS: Hematocrit 34.2 % (39.0-52.0); Hemoglobin 10.9 g/dL (13.0-18.0); Platelet Count 179 10^3/uL (130-400)
--- NOTE | 2025-01-03 16:35 | CM ---
Addendum entered by Mago Villarreal 01/03/25 17:16:
spoke to pt, he does not want to pay this amount, asked for generic meds
Original Note:
priced farxiga with pts [employer] pers[employer] plan
first month is $ 403- of that 389 is his remaining deductible
the following months his copay is 84- untill he pays 2000 OOP for the the then everything is covered at zero
[2025-01-03 16:42] LABS: B.E. - POC 0.8 mmol/L; Blood Urea Nitrogen - POC 20 mg/dl (3-120); Chloride - POC 108 mmol/L (96-111); Creatinine - POC 0.69 mg/dl (0.3-1.0); Glucose - POC 82 mg/dl (70-99); HCO3 - POC 26 mmol/L (21-28); Hematocrit - POC 36 % PCV (42-52); Hemodilution- POC Yes; Hemoglobin Calculated - POC 12.3; Ionized Calcium - POC 1.20 mmol/L (1.15-1.33); Lactate - POC 0.78 mmol/L (0.36-0.75); O2 Saturation %Calculated-POC 96.6 % (94-98); PCO2 - POC 42 mmHg (35-48); PO2 - POC 87 mmHg (83-108); Potassium - POC 4.2 mmol/L (3.5-5.1); Sodium - POC 146 mmol/L (136-145); Specimen Type - POC Arterial; pH - POC 7.40 (7.35-7.45)
[2025-01-03] MEDS: NEURONTIN 100 MG PO ×2 (16:51→21:09)
--- NOTE | 2025-01-03 16:58 | PTCARENOTE ---
Pt reassessed. AAOx3. A little restless but easily reoriented. Pt is V-paced on the tele monitor. HR 80s. BP 90-110s/60s. CVP~10. PAPs 30s/teens-20s. CI>2. Pt on 6 L NC. Repeat blood gas better. POX 96-99%. Mediastinal CTx1 assessment unchanged.
Output minimal. UO remains bloody w/ blood clots. Urology consulted. CTPA at bedside. CTPA removed current Cisneros and then placed 3-way Cisneros catheter. Brady and a-line maintained. All lines leveled, zeroed, and flushed. Glycemic protocol followed.
See worklist for full nursing interventions. See MAR for medication administration. Family at the bedside. Call iniguez within reach.
[2025-01-03] MEDS: DILAUDID 0.25 MG IV ×2 (17:22→20:31)
--- NOTE | 2025-01-03 17:37 | PTCARENOTE ---
Per urology and CTPA - CBI initiated at 1715.
[2025-01-03] MEDS: ROXICODONE 5 MG PO (17:47)
[2025-01-03 18:15] LABS: Glucose - Point of Care 93 mg/dl (70-99)
[2025-01-03] MEDS: LOW STRENGTH ASPIRIN 81 MG PO (18:16)
[2025-01-03] MEDS: LIPITOR 40 MG PO (18:16)
[2025-01-03] MEDS: ANCEF 5 IV (18:17)
[2025-01-03] MEDS: SENOKOT-S 1 TABLET PO (19:48)
--- NOTE | 2025-01-03 19:57 | CONS.URO ---
Consultation
-
Date/Time Consultation Requested: 01/03
Date/Time Consultation Performed: 01/03
Requesting Provider: CT Surgery
Performing Provider: Pat
Reason for Consultation: hematuria
Medical History
History of Present Illness
84M with prior urologic h/o BPH on alfuzosin + finasteride (sees Dr. Mahajan in [place]) w/ new hematuria noted in catheter drainage s/p MIDCAB today (JACKMAN to LAD).
[place]-tinged UOP noted intraop - progressed to frankly bloody postop.
Draining w/o issues - bladder scan 60 cc.
Urology consulted - 22Fr 3-way catheter placed as requested to initiate CBI and facilitate clearing of hematuria.
On exam, CBI on low-medium drip rate w/ clear UOP.
Past Medical History
Past Medical History: CAD, HTN and Other (HLD, BPH)
Past Surgical History: Cardiac (s/p stent 2002 (saw Dr. Vital))
Social History
Tobacco: Former Smoker (quit 1997)
Alcohol: None
Drug: None
Personal:
Living: With Family
Employment: Retired
Family History
Family History: Reviewed & Not Pertinent
Allergies/Home Medications
Allergies
Allergy/AdvReac Type Severity Reaction Status Date / Time
No Known Allergies Allergy Verified 11/13/20 08:50
Home Medications
�Medication �Instructions �Recorded �Confirmed �Type
Lactobacillus comb 1 cap PO BID PRN prn 06/23/15 12/31/24 History
no.[id number] 300 million
cell-250 mg capsule (Probiotic and
Acidophilus)
alfuzosin 10 mg tablet,extended 20 mg PO HS 06/23/15 12/31/24 History
release 24 hr
ascorbic acid (vitamin C) 1,000 mg 1,000 mg PO DAILY 06/23/15 12/31/24 History
tablet (Vitamin C)
aspirin 81 mg tablet,delayed 81 mg PO DAILY 06/23/15 12/31/24 History
release
atorvastatin 40 mg tablet 40 mg PO HS 06/23/15 12/31/24 History
citalopram 20 mg tablet 30 mg PO DAILY 06/23/15 12/31/24 History
mecobalamin (vitamin B12) 1,000 1,000 mcg sublingual DAILY 06/23/15 12/31/24 History
mcg disintegrating
tablet,sublingual
metoprolol tartrate 25 mg tablet 25 mg PO DAILY 06/23/15 12/31/24 History
nitroglycerin 0.4 mg sublingual 1 spry sublingual PRN PRN chest 06/23/15 12/31/24 History
tablet pain
omeprazole 20 mg capsule,delayed 20 mg PO DAILY 06/23/15 12/31/24 History
release (Prilosec)
oxycodone-acetaminophen 5 mg-325 1 tab PO Q4HPRN PRN MODERATE PAIN 06/24/15 12/31/24 Rx
mg tablet ##20
zinc sulfate 50 mg zinc (220 mg) 220 mg (4.4 x 50 mg zinc (220 mg)) 08/11/21 12/31/24 Rx
capsule PO DAILY #14 caps
celecoxib 200 mg capsule (Celebrex) 200 mg PO DAILY 12/31/24 12/31/24 History
duloxetine 60 mg capsule,delayed 60 mg PO DAILY 12/31/24 12/31/24 History
release
tramadol 50 mg tablet 50 mg PO Q6H PRN arthritis pain 12/31/24 12/31/24 History
Review of Systems
-
History Source: Patient and Family
A 12 point Review of Systems was completed except as noted: Yes
Physical Exam
Vital Signs
Vital Signs
Temp Pulse Resp BP Pulse Ox
99.5 F 89 24 138/78 97
01/03/25 19:00 01/03/25 19:15 01/03/25 19:15 01/03/25 19:00 01/03/25 19:15
Lab / Testing Results
Laboratory Results
01/03/25 15:52
01/03/25 11:42
Physical Exam
General: Well Developed, Well Nourished and No Apparent Distress
HEENT: Normocephalic and Anicteric
Respiratory: Non Labored Respirations
Cardiac: Regular Rhythm
Breast: N/A
GI: Soft, Non Tender and Non Distended
Rectal: Deferred by Provider
Genito-urinary: No Costovertebral Tend, Clear Urine and Cisneros Catheter
Musculoskeletal: No Edema
Skin: Warm and Dry
Neuro: AO x 3, No Motor Deficits and Nonfocal/Grossly Intact
Hematologic/Lymphatic: No Lymphadenopathy
Psych: Calm and Intact Judgement
Assessment / Plan
-
Hematuria - likely from traumatic catheter placement in setting of BPH
BPH - on combination medical therapy
Hematuria dramatically improved on CBI.
Per CTS, plan for Plavix loading on Friday 01/05 and PCI on Saturday 01/06.
Given increased risk of hematuria on DAPT and possible post-op urinary retention, plan to maintain Cisneros catheter through intervention.
- Maintain Cisneros catheter - TOV planned in AM 01/07
- Wean CBI as tolerated over next 24 hrs
- Continue ASA, plan to start Plavix 01/05 per CTS
- F/U w/ established urologist for cystoscopy
D/w patient and spouse.
D/w CTS team.
Data Reviewed
-
Total Time Spent with Patient (in minutes): 45
Medical Tests (Nuc Med, Echo, EKG etc): Report Reviewed by Me
Lab Data: Labs Reviewed, Discussed with Physician, Discussed with Nurse, Discussed with Patient and Discussed with Family
Old Records: Reviewed
[2025-01-03 20:15] LABS: Glucose - Point of Care 97 mg/dl (70-99)
[2025-01-03 20:33] LABS: B.E. -4.4 mmol/L; HCO3 21.0 mmol/L (21-28); O2 Saturation % 97.5 % (94-98); O2 Therapy 6L; PCO2 39 mmHg (35-48); PO2 105 mmHg (83-108); Potassium 4.0 mMOL/L (3.5-5.1)
--- NOTE | 2025-01-03 21:00 | PTCARENOTE ---
Patient received resting in bed. Family at bedside. Patient A+A+Ox3. No neurological deficits noted. Patient with no c/o headache, dizziness or lightheadedness. IV Dilaudid 0.25 mg for pain management. Moderate relief provided. O2 at 6L via
NC. SaO2 98%. One chest tube - Intact and patent - No air leak. Chest tube dressing intact. Permanent pacemaker - 100% V-Paced. Heart rate 90's. Keep SBP 90-130. Blood pressure via right radial arterial line 120/77 (96). Patient with no c/o
chest pain, pressure or discomfort. Abdomen soft, round, obese. Hypoactive bowel sounds. No BM. No c/o nausea. No vomiting. Patient with [address] Way Cisneros 22 FR 33 cc balloon - Continuous Bladder Irrigation - Red punch colored urine - I/O see
intervention. Patient with no c/o bladder pain, discomfort, spasms. No clots noted. Generalized edema. Positive, palpable pulses. Right I.JRegan Avitia/Joel. C.O. 6.28 C.I. 3.06 SVR 1159 PAP 36/17 (26) CVP 7. Left anterior chest incision
intact - Surgical adhesive - Open to air. 3 stab wounds noted - Left lateral chest - Intact. Assessment as documented.
[2025-01-03] MEDS: TYLENOL 1000 MG PO (21:09)
[2025-01-03 22:04] LABS: Glucose - Point of Care 94 mg/dl (70-99)
[2025-01-03] MEDS: TORADOL 15 MG IV (22:21)
--- NOTE | 2025-01-03 23:00 | PTCARENOTE ---
Toradol 15mg IV given for pain management. Patient now sleeping. CBI as documented. C.O. 6.98 C.I. 3.41 SVR 1042 PAP 37/15 (24) CVP 9. No further changes from previous assessment.
[2025-01-03 23:48] LABS: Glucose - Point of Care 117 mg/dl (70-99)
[2025-01-04] VITALS (24 sets, daily range): BP systolic 113–148; BP diastolic 47–86; PULSE 89; O2SAT 96–97; BMI 36.9
--- NOTE | 2025-01-04 01:00 | PTCARENOTE ---
Right radial arterial line nonfunctioning - No waveform, no blood return. PA for CT Surgery, Wilfredo Hanley PA-C, remove A-Line. A-Line removed without difficulty. Cuff pressure used for hemodynamic calculations. C.O. 5.05 C.I. 2.46 SVR 966
PAP 41/21 (26) CVP 11. Assessment/Interventions as documented.
[2025-01-04 02:00] LABS: Glucose - Point of Care 83 mg/dl (70-99)
[2025-01-04] MEDS: ANCEF 5 IV ×2 (02:23→11:40)
[2025-01-04 03:19] LABS: Hematocrit 34.2 % (39.0-52.0); Hemoglobin 11.0 g/dL (13.0-18.0); Mean Corp Hgb Conc. 32.2 g/dL (33.0-37.0); Mean Corpuscular Volume 84.7 fL (80.0-94.0); Platelet Count 178 10^3/uL (130-400); Red Cell Dist. Width 16.8 % (11.5-14.5)
--- NOTE | 2025-01-04 03:27 | W.PN.CT ---
Addendum entered and electronically signed by Ramon Ambriz MD 01/04/25 08:22:
I saw and examined the patient.
The PA's note was reviewed and I agree with the note.
Comment:
POD#1 s/p robotic midcab
Gross hematuria postoperative � urology placed 3-way montemayor � CBI ongoing, urine clearing
Hgb 11.0 (from 10.9).� Plan for PCI on Monday, Plavix load planned for Monday.� De-line today.�
Original Note:
Today's Communication / Plan
-
-pod #1
-no issues overnight
-CI 3.21, CO 6.59, SVR 886. Drips: insulin
-CT output: med 25/45 in 12/24 hrs
-d/c swan and a-line
-maintain 3-way Montemayor catheter for CBI until Mon
-if no further hematuria, plan is for Plavix load prior to PCI on Monday
-put Plavix and Metformin on hold for now. Continue iv Insulin
-current meds (ASA, Lipitor, Lopressor, Farxiga, Cymbalta, Celexa, Protonix)
-encourage IS, OOB
Assessment / Plan
-
- CAD with proximal LAD involvement- s/p Robotic assisted MIDCAB (single-vessel bypass JACKMAN in situ to LAD) by Dr. Lockwood on 01/03/25, pod #1
- Intraop MARQUIS: LVEF 60% pre and postop with no significant regional wma
- Moderate aortic valve stenosis
- Class 2 obesity with a BMI of 36
- Bifascicular block- s/p MDT pacer
- NSTEMI/ACS
- NSVT
- Syncope
- Previous CO with stenting
- Tobacco abuse
- Hyperlipidemia
- Hypertension
- Acute postop blood loss anemia - no transfusion, s/p 250-300 of CellSaver Blood from the field
- Acute postop atelectasis
- Acute postop hematuria- bladder irrigation
- Acute postop hypovolemia with subsequent hypervolemia
- Suspected acute postop pericarditis/ + rub
Discussed patient care with: Nursing and Care Team
Subjective
-
Date of Service: January 04, 2025
Objective Data
-
Lab Results
01/04/25 03:02
PT 17.0 Sec (11.4-14.6) H 01/03/25 11:42
INR 1.35 01/03/25 11:42
APTT 129.6 Sec (23.4-35.0) H 01/03/25 04:53
Vital Signs
Vital Signs
Temp Pulse Resp BP Pulse Ox
98.8 F 93 20 119/64 99
01/04/25 02:00 01/04/25 02:00 01/04/25 02:00 01/04/25 02:00 01/04/25 02:00
CT Intake/Output/Weight
01/03/25 01/03/25 01/04/25
06:59 18:59 06:59
Intake Total 305.2 / 593.4 288.2 / 593.4
Output Total 1460 / 2135 675 / 2135
Balance -1154.8 / -1541.6 -386.8 / -1541.6
SaO2: 99
Physical Exam
-
General: Awake and AOx3
Cardiovascular: Regular rate & rhythm, No Murmurs and Rub
Respiratory: Decreased Breath Sounds
Sternum: Stable
Incision: Clean, Dry and Intact
Extremities: Other (trace edema b/l, 2+ DPs b/l)
Abdomen: soft, nontender, nondistended, + decreased bowel sounds
Data Reviewed
-
Lab Results: Results Reviewed
Medications: Active Meds Reviewed
Chest X-Ray: Report Reviewed and Image Reviewed
ECG: Report Reviewed and Image Reviewed
[2025-01-04 03:42] LABS: Blood Urea Nitrogen 22 mg/dl (9-20); Calcium 8.8 mg/dl (8.4-10.2); Carbon Dioxide 23 mmol/L (22-30); Chloride 113 mmol/L (98-107); Estimated Creatinine Clearance 88 ml/min; Glucose 84 mg/dl (70-99); Magnesium 2.0 mg/dl (1.6-2.3); Potassium 4.3 mmol/L (3.5-5.1); Sodium 143 mmol/L (135-145); eGFR > 60.00
[2025-01-04 04:27] LABS: Glucose - Point of Care 85 mg/dl (70-99)
[2025-01-04 06:13] LABS: Glucose - Point of Care 84 mg/dl (70-99)
--- NOTE | 2025-01-04 06:30 | PTCARENOTE ---
Patient A+A+Ox3. No neurological deficits noted. Patient given CHG bath and linens changed. AM lab work collected and sent. Patient De-Lined without difficulty. OOB with assist x2. No c/o headache, dizziness or lightheadedness. Standing scale
weight 100.6 kg. Assessment/Interventions as documented.
[2025-01-04] MEDS: TYLENOL 1000 MG PO ×3 (06:49→22:51)
[2025-01-04] MEDS: TORADOL 15 MG IV ×2 (06:59→23:00)
--- NOTE | 2025-01-04 07:30 | PTCARENOTE ---
pt received from outgoing RN, pt oob in chair, vss, 2lnc, montemayor CBI, RtP CT, pain management, Rt IJ Cordis, Vpaced with pvc, insulin gtt till tomorrow.
[2025-01-04 08:17] LABS: Glucose - Point of Care 109 mg/dl (70-99)
--- NOTE | 2025-01-04 08:22 | W.PN.INTV ---
Today's Communication / Plan
Recommendations
Up OOB as tolerated
Pain control
Wean down supplemental O2 flow rate to maintain SaO2 >90-94%
Wean down insulin drip as per protocol
Distribution Engineering Technologist service will continue to follow along until downgraded to CVICU�telemetry status
Assessment
-
Assessment: 84-year-old male with a past medical history of NSVT, CAD s/p BMS (2000), hypertension, hypercholesterolemia and aortic stenosis who initially presented to [facility] with symptoms concerning for angina.
He was ruled in for an NSTEMI and cardiac catheterization was recommended but patient wanted to be transferred to [facility] for further care. Left heart catheterization performed on 01/01/2025 showed multivessel CAD involving the RPDA,
distal RCA, ostium/proximal LAD. There was also elevated filling pressures with LVEDP: 20 mmHg, PCWP: 20 mmHg. PA pressure was 37/22 with TPG 7 mmHg. PVR was WNL at 1.39 Wood units with CO/CI 5.04/2.43, respectively. Cardiothoracic surgery was
consulted and the patient was recommended for surgical revascularization which he agreed to. Today patient underwent robotic assisted MIDCAB with single-vessel bypass JACKMAN in situ to LAD. Patient tolerated the procedure well, and was transferred
to the CVICU postoperatively for further care. Distribution Engineering Technologist services consulted for additional management/recommendations.
Chronic conditions CUSTOMER SUPPLY CHAIN ANALYST: CAD s/p stent to RCA, BPH, hyperlipidemia, arthritis, bifascicular block, history of diverticulitis, history of SVT, kidney stones
Impression:
#CAD with proximal LAD involvement s/p robotic assisted MIDCAB (single-vessel bypass JACKMAN in situ to LAD) � POD #1
#Anemia
#DM type II complicated by hyperglycemia (HbA1c: 6.6 on 12/31/2024)
#History of coronary stent to proximal RCA complicated by 20% in-stent restenosis (per [facility] on 01/01/2025)
#Acute HFmrEF
#Valvular heart disease with moderate mitral stenosis and mild aortic stenosis
#Bifascicular block
#BPH
#Nephrolithiasis
Plan:
Patient had already been extubated in the CVOR, and is currently breathing comfortably on 1 L/min nasal cannula saturating 94-95%
Continue to wean down supplemental O2 flow rate to maintain SpO2 >90-94%
prn nebulized bronchodilators - not currently bronchospastic
Encourage incentive spirometer (as chest discomfort tolerates) with goal q1hr while awake
Pulmonary artery catheter parameters will be followed
Pressors/antihypertensive/inotropes/diuretics will be provided as needed
Maintain MAP>65
Replete electrolytes with K>4, Mg>2
Monitor chest tube output (mediastinal chest tube x 1)
Monitor hemoglobin
Monitor platelet count and coags
Transfuse blood products as needed to maintain Hb>7g/dL, plt>50k (given post-operative status)
CT surgery managing chest tubes
Monitor blood sugar to maintain euglycemia with goal BG 110-140
Insulin drip per protocol
Aspiration precautions
DVT prophylaxis
Early nutrition
Early mobilization
Critical care statement: A total of 38 minutes of critical care time was provided for this patient today. This includes management of ventilator, spontaneous breathing trial, arterial blood gases, pressors, of unstable vital signs, evaluation of the
patient at bedside, reviewing the patient's pertinent medical records including radiographs, microbiology, laboratory evaluations, and discussion with primary team and critical care nursing.
Data:
Transthoracic echocardiogram 12/31/2024:
-Left ventricular ejection fraction is 40-45%. Akinesis/dyskinesis of the
apical regions; no LV thrombus present (contrast agent used). Severe basal
inferior hypokinesis. Abnormal (paradoxical) septal motion consistent with RV
pacemaker.
-Normal right ventricular size and function. Pacer wire seen in right
ventricle.
-Severely dilated left atrium.
-Moderate mitral stenosis; peak/mean gradients are 17/7 mmHg.
-Mild aortic stenosis; peak/mean gradients 21/11 mmHg.
Compared to previous echo on 08/20/2024, there is a decline in LVEF (previously
50%).
Subjective Dataa
Subjective Data
Date of Service:
Date of Service: January 04, 2025
Chief Complaint: Distribution Engineering Technologist Follow Up
Subjective:
Patient was seen and evaluated this morning. Resting in bed in no acute distress. Multiple family members at bedside. Patient mainly feels tired and chest discomfort on the left side of his anterior chest wall. On 1 L/min nasal cannula. Heart
rate 83, BP 145/78 and saturating 95%. No SOB, SAUCEDA, fevers or chills reported.
Review of Systems
General: Other (Negative unless mentioned above)
Objective Data
Data Reviewed
Vital Signs / I&O / Oxygen:
Vital Signs
Temp Pulse Resp BP Pulse Ox
98.2 F 90 22 135/53 95
01/04/25 08:00 01/04/25 08:00 01/04/25 08:00 01/04/25 08:00 01/04/25 08:45
Intake and Output
01/03/25 01/04/25 01/05/25
06:59 06:59 06:59
Intake Total 654.6 / 654.6
Output Total 2140 / 2140 -100 / -100
Balance -1485.4 / -1485.4 100 / 100
SaO2 95
Nasal Cannula flow liters per 2
minute
Physical Exam
General: Respiratory Distress (negative), Comfortable, Chills (negative), Sweats (negative) and Other (Pleasant mood)
HEENT: Normocephalic, Anicteric and Other (Thick neck)
Cardiovascular: S1-S2 and Peripheral Edema (negative)
Respiratory: Wheeze (negative), Crackles (negative), Rhonchi (negative) and Non-Labored Respirations
GI: Soft, Distended (Abdominal obesity), Non Tender and Normal Bowel Sounds
Neurology: AO x 3 and Tremors (negative)
Skin: Warm, Dry, Cyanosis (negative) and Jaundice (negative)
Labs/Micro/Reports
Lab Data
01/04/25 03:02
01/04/25 03:02
Laboratory Results
01/03/25 01/03/25 01/03/25
11:42 13:10 20:27
PT 17.0 H
INR 1.35
pH 7.24 L 7.29 L 7.34 L
pCO2 56 H 50 H 39
pO2 95 107 105
HCO3 24.0 24.0 21.0
O2 Delivery Level Not Reportable Not Reportable 6l
01/04/25
00:15
PT
INR
pH Cancelled
pCO2 Cancelled
pO2 Cancelled
HCO3 Cancelled
O2 Delivery Level Cancelled
Microbiology
12/31/24 17:24 Nose MRSA Screen - Final
No Methicillin Resistant Staphylococcus aureus isolated.
[2025-01-04] MEDS: VITAMIN B-12 1000 MCG PO (08:58)
[2025-01-04] MEDS: CELEXA 30 MG PO (08:58)
[2025-01-04] MEDS: NEURONTIN 100 MG PO ×3 (08:58→22:51)
[2025-01-04] MEDS: MAGNESIUM OXIDE 500 MG PO ×2 (08:58→20:18)
[2025-01-04] MEDS: LOW STRENGTH ASPIRIN 81 MG PO (08:59)
[2025-01-04] MEDS: SENOKOT-S 1 TABLET PO ×2 (08:59→20:18)
[2025-01-04] MEDS: LOPRESSOR 12.5 MG PO ×2 (08:59→20:18)
[2025-01-04] MEDS: CYMBALTA DELAYED RELEASE 60 MG PO (08:59)
[2025-01-04] MEDS: PROTONIX PO (08:59)
[2025-01-04] MEDS: LIDOCAINE 4% PATCH TOPICAL (09:00)
[2025-01-04] MEDS: BACTROBAN 2% OINTMENT 1 APPLIC NASAL ×2 (09:00→20:18)
[2025-01-04] MEDS: PROTONIX 40 MG PO (09:00)
--- NOTE | 2025-01-04 09:15 | W.PN.ANS.POP ---
Anesthesia Post Operative
- Anesthesia Post Op Note
Vital Signs Stable-See Nursing Note: Yes
Airway Patent: Yes
Adequate Pain Control: Yes
Change in Mental Status: No
Current Postoperative Nausea & Vomiting: No
Anesthesia Complications: No
General Anesthetic Recall: No
Unplanned Admission: No
Post Op Hydration Adequate: Yes
[2025-01-04 10:04] LABS: Glucose - Point of Care 162 mg/dl (70-99)
[2025-01-04] MEDS: NSS IV (11:39)
--- NOTE | 2025-01-04 11:54 | PTCARENOTE ---
pt reassessment unchanged from previous, ambulated with cardiac rehab, in and out of bed with meals, insulin gtt, cbi per urology.
[2025-01-04] MEDS: FERRLECIT 110 MG IV (14:02)
--- NOTE | 2025-01-04 14:16 | W.PN.CD ---
Today's Communication / Plan
-
plan is to complete revascularization with PCI on Monday
-Plavix load tomorrow if Hgb stable
Impression / Plan
-
Impression/Plan: 84M with CAD (IMI with BMS 2000), syncope with bifascicular block status post PPM, hypertension, dyslipidemia, aortic stenosis, and NSVT transferred from [facility] with ACS
Outpatient software qa system specialist: Dr. Grant
#NSTEMI s/p robotic assisted MIDCAB (single-vessel JACKMAN in situ to LAD) on 01/03/[address] Lockwood
-EKG is paced.
-Pre-LVEF 60%, post LVEF 60% (TTE showed LVEF 40-45%), can consider limited study prior to discharge
-Echo shows apical akinesis/dyskinesis, new severe inferior basal hypokinesis and reduced LVEF (now 40-45%).
-Cath showed significant MV CAD (70+% ostial LAD, 90% mLAD, 80-90% pLCx and 70% ostial RPDA).
-plan is to complete revascularization with PCI on Monday
-Plavix load tomorrow if Hgb stable
# Hematuria
-trend Cisneros output
#Cardiomyopathy
-LVEF now 40-45%.
-GDMT
-Diuretics: None.
-Beta blockers: Metoprolol to transition to succinate before d/c
-ACEI/ARB/ARNi: not yet
-MRA: not yet
-SGLT2i: Farxiga
-ICD: PPM in place. ICD not currently indicated.
#Hypertension
-Chronic, stable.
-Continue metoprolol.
#Paroxysmal atrial fibrillation/SSS (syncope)
-Chronic, s/p PPM, currently paced.
-4-hour episode of AF 09/10/2024 on device.
-Rate/rhythm control with metoprolol.
-[id number]: score at least 4 (HTN, age 75 or more, Vascular disease).
-Oral anticoagulation: to resume post PCI
#NSVT
- Stable without palpitations
- Most recent episode 11/22/2024.
#Hyperlipidemia
-Chronic, stable.
-Total cholesterol = 115, LDL = 46, HDL = 44, Triglycerides = 126.
-Continue atorvastatin.
#Mild/moderate Aortic stenosis
-Chronic.
-Peak/mean gradients 24/12 mmHg on echo, 23.3 mmHg on pullback during cath.
#Moderate Mitral stenosis on echo
-No meaningful gradient at cath.
#NIDDM2
-New diagnosis.
-HbA1c = 6.6%.
-He would benefit from GLP-1 analog given diagnosis of CAD.
#Obesity
-Chronic, BMI 37.
-He would benefit from weight loss - including GLP-1 analog.
DATA:
Transthoracic echocardiogram, 12/31/2024:
CONCLUSIONS
-Left ventricular ejection fraction is 40-45%. Akinesis/dyskinesis of the
apical regions; no LV thrombus present (contrast agent used). Severe basal
inferior hypokinesis. Abnormal (paradoxical) septal motion consistent with RV
pacemaker.
-Normal right ventricular size and function. Pacer wire seen in right
ventricle.
-Severely dilated left atrium.
-Moderate mitral stenosis; peak/mean gradients are 17/7 mmHg.
-Mild aortic stenosis; peak/mean gradients 21/11 mmHg.
Cardiac Catheterization, 01/01/2025:
CONCLUSIONS:
1. Right dominant circulation with a 30% lesion in the ostium of the RPDA followed by a patent stent with 20% ISR, a 30-40% lesion in the distal RCA at the crux and a 70% lesion in the ostium of the RPDA, a hazy, 80-90% lesion in the proximal
circumflex, and extremely short left main leading to nonselective imaging of the LAD, demonstrating a 70+ percent lesion in the ostium/proximal margin of the vessel with dampening of the catheter on engagement, and 90% lesion in the mid vessel
originating at the origin of D1.
2. Moderately elevated filling pressures (LVEDP = 20 mmHg, PCWP = 20 mmHg at 102.1 kg).
3. Mild postcapillary pulmonary hypertension (mean PA = 27 mmHg, PCWP = 20 mmHg, cardiac output = 5.04 L/min, PVR = 1.39 Hernández units), WHO group 2.
4. At least moderate aortic valve stenosis (mean gradient 23.3 mmHg on pullback, LILIBETH = 1.04 cm�).
5. No evidence of meaningful mitral valve stenosis.
6. Of note, after reviewing the films, we suffered a significant failure of the flat panel imaging system. Thankfully, the procedure was complete and the patient was removed from the table.
Physical Exam
Vital Signs/Labs
Vital Signs
Temp Pulse Resp BP Pulse Ox
98.2 F 85 22 145/78 95
01/04/25 08:00 01/04/25 11:00 01/04/25 08:00 01/04/25 11:00 01/04/25 08:45
01/03/25 01/04/25 01/05/25
06:59 06:59 06:59
Actual Weight 98.3 kg 100.6 kg
01/04/25 03:02
01/04/25 03:02
PT 17.0 Sec (11.4-14.6) H 01/03/25 11:42
INR 1.35 01/03/25 11:42
APTT 129.6 Sec (23.4-35.0) H 01/03/25 04:53
Magnesium 2.0 mg/dl (1.6-2.3) 01/04/25 03:02
Triglycerides 126 mg/dl (10-149) 01/01/25 04:36
LDL Cholesterol, Calc 46 mg/dl 01/01/25 04:36
VLDL Cholesterol, Calc 25 mg/dl (0-30) 01/01/25 04:36
HDL Cholesterol 44 mg/dl 01/01/25 04:36
Physical Exam
Constitutional: No acute distress
EENT: Moist mucous membranes
Cardiovascular: Rhythm & rate is regular, Pedal edema is absent, JVD pressure is normal and Systolic murmur present
Respiratory: Respiratory effort normal and Lungs clear to auscul.
Neuro/Psych: AO x 3
Data Reviewed
-
Date of Service: January 04, 2025
EKG: Other (Tele: AsVp, PVC)
Labs: Labs Reviewed by me
[2025-01-04 16:12] LABS: Glucose - Point of Care 128 mg/dl (70-99)
[2025-01-04] MEDS: NOVOLOG FLEXPEN-MODERATE RESISTANCE SC (16:17)
--- NOTE | 2025-01-04 16:26 | PTCARENOTE ---
pt reassessment unchanged from previous, vss, ra, vpaced, rt ij cordis, 3way montemayor cbi, oob during meals, ambulating as tolerated, pain management, IS reinforcement.
[2025-01-04] MEDS: LIPITOR 40 MG PO (17:32)
--- NOTE | 2025-01-04 20:30 | PTCARENOTE ---
Patient received resting in bed watching television. Patient A+A+Ox3. No neurological deficits noted. No c/o headache, dizziness or lightheadedness. Room air. SpO2 92%. Occasional, nonproductive cough. One chest tube - Intact and patent - No
air leak - Dressing intact. Permanent pacemaker. 100% V-Paced. Heart rate 90's. Blood pressure 133/69 (87). Patient with no c/o chest pain, pressure or discomfort. Abdomen soft, round, nontender. Normoactive bowel sounds. No BM. No c/o
nausea. No vomiting. 3 Way Cisneros Catheter - Continuous Bladder Irrigation - Lula urine. Left anterior chest incision intact - Surgical adhesive - Open to air. Three puncture sites - Intact. Right I.J. Cordis removed - Occluded - Catheter
kinked. Assessment as documented.
[2025-01-04] MEDS: MUCINEX 600 MG PO (21:28)
[2025-01-04 23:14] LABS: Glucose - Point of Care 107 mg/dl (70-99)
--- NOTE | 2025-01-05 | PTCARENOTE ---
Patient's [address] Cisneros obstructed - Irrigated - Few small brownish red clots - Continuous Bladder Irrigation now with positive flow. Lula, yellow urine. Patient given CHG bath and linens changed. Toradol 15mg IV for pain management. Patient with
occasional nonproductive cough - Mucinex ordered and given. Patient resting in bed watching television. Assessment as documented.
[2025-01-05 04:20] VITALS: BP 149/68
[2025-01-05 04:21] VITALS: BP 149/68
--- NOTE | 2025-01-05 05:00 | PTCARENOTE ---
Patient A+A+Ox3. No neurological deficits noted. AM lab work collected and sent. CBI continues - Yellow urine with a few small blood clots. OOB in AM. Assessment/Interventions as documented.
[2025-01-05 05:08] LABS: Hematocrit 32.6 % (39.0-52.0); Hemoglobin 10.5 g/dL (13.0-18.0); Mean Corp Hgb Conc. 32.2 g/dL (33.0-37.0); Mean Corpuscular Volume 84.0 fL (80.0-94.0); Platelet Count 154 10^3/uL (130-400); Red Cell Dist. Width 17.0 % (11.5-14.5)
[2025-01-05 05:39] LABS: Blood Urea Nitrogen 26 mg/dl (9-20); Calcium 8.9 mg/dl (8.4-10.2); Carbon Dioxide 25 mmol/L (22-30); Chloride 110 mmol/L (98-107); Estimated Creatinine Clearance 69 ml/min; Glucose 107 mg/dl (70-99); Magnesium 2.3 mg/dl (1.6-2.3); Potassium 4.0 mmol/L (3.5-5.1); Sodium 139 mmol/L (135-145); eGFR > 60.00
[2025-01-05 06:00] VITALS: BMI 36.0
[2025-01-05] MEDS: TYLENOL 1000 MG PO ×3 (06:24→20:22)
[2025-01-05 07:46] VITALS: BP 120/68
[2025-01-05 07:59] LABS: Glucose - Point of Care 125 mg/dl (70-99)
[2025-01-05] MEDS: NOVOLOG FLEXPEN-MODERATE RESISTANCE SC ×2 (08:14→12:51)
--- NOTE | 2025-01-05 08:19 | W.PN.INTV ---
Today's Communication / Plan
Recommendations
Up OOB as tolerated
Pain control
Wean down supplemental O2 flow rate to maintain SaO2 >90-94%
Goal BG 110-140
Patient to be downgraded to CVICU�telemetry status today. No additional recommendations at this time. Veterans Service Representative/Pulmonary service will now sign off. Please reconsult if there are any additional questions/concerns, or if patient's respiratory
status deteriorates.
Assessment
-
Assessment: 84-year-old male with a past medical history of NSVT, CAD s/p BMS (2000), hypertension, hypercholesterolemia and aortic stenosis who initially presented to [facility] with symptoms concerning for angina.
He was ruled in for an NSTEMI and cardiac catheterization was recommended but patient wanted to be transferred to [facility] for further care. Left heart catheterization performed on 01/01/2025 showed multivessel CAD involving the RPDA,
distal RCA, ostium/proximal LAD. There was also elevated filling pressures with LVEDP: 20 mmHg, PCWP: 20 mmHg. PA pressure was 37/22 with TPG 7 mmHg. PVR was WNL at 1.39 Wood units with CO/CI 5.04/2.43, respectively. Cardiothoracic surgery was
consulted and the patient was recommended for surgical revascularization which he agreed to. Today patient underwent robotic assisted MIDCAB with single-vessel bypass JACKMAN in situ to LAD. Patient tolerated the procedure well, and was transferred
to the CVICU postoperatively for further care. Veterans Service Representative services consulted for additional management/recommendations.
Chronic conditions PATIENT ACCOUNTS SPECIALIST: CAD s/p stent to RCA, BPH, hyperlipidemia, arthritis, bifascicular block, history of diverticulitis, history of SVT, kidney stones
Impression:
#CAD with proximal LAD involvement s/p robotic assisted MIDCAB (single-vessel bypass JACKMAN in situ to LAD) � POD #2
#Anemia
#DM type II complicated by hyperglycemia (HbA1c: 6.6 on 12/31/2024) - hyperglycemia now resolved
#History of coronary stent to proximal RCA complicated by 20% in-stent restenosis (per [facility] on 01/01/2025)
#Acute HFmrEF
#Valvular heart disease with moderate mitral stenosis and mild aortic stenosis
#Bifascicular block
#BPH
#Nephrolithiasis
Plan:
Patient had already been extubated in the CVOR, and is currently breathing comfortably on 2 L/min nasal cannula saturating 93-95%
Continue to wean down supplemental O2 flow rate to maintain SpO2 >90-94%
prn nebulized bronchodilators - not currently bronchospastic
Encourage incentive spirometer (as chest discomfort tolerates) with goal q1hr while awake
If resting SpO2 is <96% at rest, then check home O2 assessment prior to discharge
Pressors/antihypertensive/inotropes/diuretics will be provided as needed
Maintain MAP>65
Replete electrolytes with K>4, Mg>2
Monitor chest tube output (mediastinal chest tube x 1)
Monitor hemoglobin
Monitor platelet count and coags
Transfuse blood products as needed to maintain Hb>7g/dL, plt>50k (given post-operative status)
CT surgery managing chest tubes
Monitor blood sugar to maintain euglycemia with goal BG 110-140
Insulin drip now off; recommend to use ISS to keep BG at goal as above
Aspiration precautions
DVT prophylaxis
Early nutrition
Early mobilization
Patient to be downgraded to CVICU�telemetry status today. No additional recommendations at this time. Veterans Service Representative/Pulmonary service will now sign off. Thank you for allowing us to be involved in the care of this patient. Please reconsult if
there are any additional questions/concerns, or if patient's respiratory status deteriorates.
Data:
Transthoracic echocardiogram 12/31/2024:
-Left ventricular ejection fraction is 40-45%. Akinesis/dyskinesis of the
apical regions; no LV thrombus present (contrast agent used). Severe basal
inferior hypokinesis. Abnormal (paradoxical) septal motion consistent with RV
pacemaker.
-Normal right ventricular size and function. Pacer wire seen in right
ventricle.
-Severely dilated left atrium.
-Moderate mitral stenosis; peak/mean gradients are 17/7 mmHg.
-Mild aortic stenosis; peak/mean gradients 21/11 mmHg.
Compared to previous echo on 08/20/2024, there is a decline in LVEF (previously
50%).
Total time spent today was 58 minutes for this encounter. Time includes reviewing laboratory test/imaging results, reviewing pertinent medical records, obtaining and reviewing medical history, performing an appropriate exam, ordering medications,
tests and procedures. Time also includes documentation of this encounter, coordinating patient care and communicating with other healthcare professionals. Total time does not include separately billed tests performed on this date of service.
Subjective Dataa
Subjective Data
Date of Service:
Date of Service: January 05, 2025
Chief Complaint: Veterans Service Representative Follow Up
Subjective:
Patient seen and evaluated today bedside. Had right arm pain overnight and got scared that he was having another heart attack. Mediastinal chest tube x [address] Did not sleep well overnight due to right arm pain. Has a cough with difficulty
getting out his phlegm as he has chest discomfort when he coughs. Otherwise denies SAUCEDA, abdominal pain, nausea, fevers or chills. Currently saturating 93% on 2 L/min nasal cannula, heart rate 88 and BP 134/85.
Review of Systems
General: Other (Negative unless mentioned above)
Objective Data
Data Reviewed
Vital Signs / I&O / Oxygen:
Vital Signs
Temp Pulse Resp BP Pulse Ox
98.3 F 89 20 120/68 96
01/05/25 07:46 01/05/25 09:00 01/05/25 07:46 01/05/25 08:28 01/05/25 10:15
Intake and Output
01/04/25 01/05/25 01/06/25
06:59 06:59 06:59
Intake Total 654.6 / 654.6 1039 / 1039 240 / 240
Output Total 2140 / 2140 1270 / 1270 70 / 70
Balance -1485.4 / -1485.4 -231 / -231 170 / 170
SaO2 96
Nasal Cannula flow liters per 2
minute
Physical Exam
General: Respiratory Distress (negative), Comfortable, Chills (negative) and Sweats (negative)
HEENT: Normocephalic, Anicteric and Other (Thick neck)
Cardiovascular: S1-S2 and Peripheral Edema (negative)
Respiratory: Wheeze (negative), Crackles (negative), Rhonchi (negative), Non-Labored Respirations and Chest Tube (Mediastinal chest tube x 1)
GI: Soft, Distended (Abdominal obesity), Non Tender and Normal Bowel Sounds
Neurology: AO x 3 and Tremors (negative)
Skin: Warm, Dry, Cyanosis (negative) and Jaundice (negative)
Labs/Micro/Reports
Lab Data
01/05/25 04:57
01/05/25 04:57
Microbiology
12/31/24 17:24 Nose MRSA Screen - Final
No Methicillin Resistant Staphylococcus aureus isolated.
--- NOTE | 2025-01-05 08:19 | W.PN.CT ---
Addendum entered and electronically signed by Ramon Ambriz MD 01/05/25 09:35:
I saw and examined the patient.
The PA's note was reviewed and I agree with the note.
Comment:
POD#2
Plavix load (600mg) this AM - for PCI/stent tomorrow
CT: 10cc overnight - left w/ basilar atelectasis vs. effusion (worsened from yesterday) - maintain CT; posterial drainage of CT; encourage OOB/IS
Hematuria cleared - CBI resumed w/ additional clots - urology following
Original Note:
Today's Communication / Plan
-
-pod #2
-no issues overnight
-CT outputs: med 10/240 in 12/24 hrs
-Cordis dcd (non-functional)
-started Mucinex for cough
-Plavix load today for planned PCI on Monday. Hg is stable - 10.5 (11.0 on 01/04), plat 154K
-maintain CBI for hematuria until Mon, monitor for any recurrence of blood while on ASA and Plavix
-encourage IS, OOB
Assessment / Plan
-
- CAD with proximal LAD involvement- s/p Robotic assisted MIDCAB (single-vessel bypass JACKMAN in situ to LAD) by Dr. Lockwood on 01/03/25, pod #2
- Intraop MARQUIS: LVEF 60% pre and postop with no significant regional wma
- Moderate aortic valve stenosis
- Class 2 obesity with a BMI of 36
- Bifascicular block- s/p MDT pacer
- NSTEMI/ACS
- NSVT
- Syncope
- Previous AK with stenting
- Tobacco abuse
- Hyperlipidemia
- Hypertension
- Acute postop blood loss anemia - no transfusion, s/p 250-300 of CellSaver Blood from the field
- Acute postop atelectasis
- Acute postop gross hematuria- 3-way catheter placed by Urology for bladder irrigation
- Acute postop hypovolemia with subsequent hypervolemia
- Suspected acute postop pericarditis/ + rub
Discussed patient care with: Nursing and Care Team
Subjective
-
Date of Service: January 05, 2025
Objective Data
-
Lab Results
01/05/25 04:57
01/05/25 04:57
PT 17.0 Sec (11.4-14.6) H 01/03/25 11:42
INR 1.35 01/03/25 11:42
APTT 129.6 Sec (23.4-35.0) H 01/03/25 04:53
Vital Signs
Vital Signs
Temp Pulse Resp BP Pulse Ox
98.3 F 94 20 120/68 94
01/05/25 07:46 01/05/25 08:00 01/05/25 07:46 01/05/25 07:46 01/05/25 07:46
CT Intake/Output/Weight
01/04/25 01/05/25 01/05/25
18:59 06:59 18:59
Intake Total 559 / 1039 480 / 1039 240 / 240
Output Total 1130 / 1270 140 / 1270
Balance -571 / -231 340 / -231 240 / 240
SaO2: 94
Physical Exam
-
General: Awake and AOx3
Cardiovascular: Irregular rate & rhythm (a-fib with v-pacing)
Respiratory: Decreased Breath Sounds
Sternum: Stable
Incision: Clean, Dry and Intact
Extremities: Edema +1
Data Reviewed
-
Lab Results: Results Reviewed
Medications: Active Meds Reviewed
Chest X-Ray: Report Reviewed and Image Reviewed
ECG: Report Reviewed and Image Reviewed
[2025-01-05] MEDS: SENOKOT-S 1 TABLET PO ×2 (08:28→20:22)
[2025-01-05] MEDS: PLAVIX 600 MG PO (08:28)
[2025-01-05] MEDS: LOPRESSOR 12.5 MG PO ×2 (08:28→20:22)
[2025-01-05] MEDS: CYMBALTA DELAYED RELEASE 60 MG PO (08:29)
[2025-01-05] MEDS: MUCINEX 600 MG PO (08:29)
[2025-01-05] MEDS: CELEXA 30 MG PO (08:29)
[2025-01-05] MEDS: VITAMIN B-12 1000 MCG PO (08:30)
[2025-01-05] MEDS: FARXIGA 10 MG PO (08:30)
[2025-01-05] MEDS: NEURONTIN 100 MG PO ×3 (08:30→20:22)
[2025-01-05] MEDS: PROTONIX 40 MG PO (08:30)
[2025-01-05] MEDS: LOW STRENGTH ASPIRIN 81 MG PO (08:30)
[2025-01-05] MEDS: MAGNESIUM OXIDE 500 MG PO ×2 (08:30→20:21)
[2025-01-05] MEDS: PROTONIX PO (08:32)
[2025-01-05] MEDS: BACTROBAN 2% OINTMENT 1 APPLIC NASAL ×2 (08:35→20:33)
[2025-01-05] MEDS: LIDOCAINE 4% PATCH 1 PATCH TOPICAL (08:36)
--- NOTE | 2025-01-05 09:18 | PTCARENOTE ---
Received patient for 7a-7p shift. Patient AAOx3, without complaints. V paced with occasional PVCs on bond underwriter, VSS. Left chest tube to low wall suction, draining serosanguineous, no air leak noted. CBI infusing without complications, clear
yellow urine. PIV L AC patent. Patient denies pain at this time. Occasional productive cough, valdez sputum. Medications administered as ordered. Instructed patient to call for assistance prior to ambulation. Patient verbalized understanding, call iniguez
in reach. Will continue to monitor.
--- NOTE | 2025-01-05 10:48 | W.PN.CD ---
Today's Communication / Plan
-
plan is to complete revascularization with PCI on Monday
-s/p Plavix load this AM, then continue ASA 81mg daily, Plavix 75mg daily
Impression / Plan
-
Impression/Plan: 84M with CAD (IMI with BMS 2000), syncope with bifascicular block status post PPM, hypertension, dyslipidemia, aortic stenosis, and NSVT transferred from [facility] with ACS
Outpatient photo mask inspector: Dr. Grant
#NSTEMI s/p robotic assisted MIDCAB (single-vessel JACKMAN in situ to LAD) on 01/03/[address] Lockwood
-EKG is paced.
-Pre-LVEF 60%, post LVEF 60% (TTE showed LVEF 40-45%), can consider limited study prior to discharge
-Echo shows apical akinesis/dyskinesis, new severe inferior basal hypokinesis and reduced LVEF (now 40-45%).
-Cath showed significant MV CAD (70+% ostial LAD, 90% mLAD, 80-90% pLCx and 70% ostial RPDA).
-plan is to complete revascularization with PCI on Monday
-s/p Plavix load this AM, then continue ASA 81mg daily, Plavix 75mg daily
# Hematuria
-trend Cisneros output
#Cardiomyopathy
-LVEF now 40-45%.
-GDMT
-Diuretics: None.
-Beta blockers: Metoprolol to transition to succinate before d/c
-ACEI/ARB/ARNi: not yet
-MRA: not yet
-SGLT2i: Farxiga
-ICD: PPM in place. ICD not currently indicated.
#Hypertension
-Chronic, stable.
-Continue metoprolol.
#Paroxysmal atrial fibrillation/SSS (syncope)
-Chronic, s/p PPM, currently paced.
-4-hour episode of AF 09/10/2024 on device.
-Rate/rhythm control with metoprolol.
-[id number]: score at least 4 (HTN, age 75 or more, Vascular disease).
-Oral anticoagulation: to resume post PCI
#NSVT
- Stable without palpitations
- Most recent episode 11/22/2024.
#Hyperlipidemia
-Chronic, stable.
-Total cholesterol = 115, LDL = 46, HDL = 44, Triglycerides = 126.
-Continue atorvastatin.
#Mild/moderate Aortic stenosis
-Chronic.
-Peak/mean gradients 24/12 mmHg on echo, 23.3 mmHg on pullback during cath.
#Moderate Mitral stenosis on echo
-No meaningful gradient at cath.
#NIDDM2
-New diagnosis.
-HbA1c = 6.6%.
-He would benefit from GLP-1 analog given diagnosis of CAD.
#Obesity
-Chronic, BMI 37.
-He would benefit from weight loss - including GLP-1 analog.
DATA:
Transthoracic echocardiogram, 12/31/2024:
CONCLUSIONS
-Left ventricular ejection fraction is 40-45%. Akinesis/dyskinesis of the
apical regions; no LV thrombus present (contrast agent used). Severe basal
inferior hypokinesis. Abnormal (paradoxical) septal motion consistent with RV
pacemaker.
-Normal right ventricular size and function. Pacer wire seen in right
ventricle.
-Severely dilated left atrium.
-Moderate mitral stenosis; peak/mean gradients are 17/7 mmHg.
-Mild aortic stenosis; peak/mean gradients 21/11 mmHg.
Cardiac Catheterization, 01/01/2025:
CONCLUSIONS:
1. Right dominant circulation with a 30% lesion in the ostium of the RPDA followed by a patent stent with 20% ISR, a 30-40% lesion in the distal RCA at the crux and a 70% lesion in the ostium of the RPDA, a hazy, 80-90% lesion in the proximal
circumflex, and extremely short left main leading to nonselective imaging of the LAD, demonstrating a 70+ percent lesion in the ostium/proximal margin of the vessel with dampening of the catheter on engagement, and 90% lesion in the mid vessel
originating at the origin of D1.
2. Moderately elevated filling pressures (LVEDP = 20 mmHg, PCWP = 20 mmHg at 102.1 kg).
3. Mild postcapillary pulmonary hypertension (mean PA = 27 mmHg, PCWP = 20 mmHg, cardiac output = 5.04 L/min, PVR = 1.39 Hernández units), WHO group 2.
4. At least moderate aortic valve stenosis (mean gradient 23.3 mmHg on pullback, LILIBETH = 1.04 cm�).
5. No evidence of meaningful mitral valve stenosis.
6. Of note, after reviewing the films, we suffered a significant failure of the flat panel imaging system. Thankfully, the procedure was complete and the patient was removed from the table.
Physical Exam
Vital Signs/Labs
Vital Signs
Temp Pulse Resp BP Pulse Ox
98.3 F 89 20 120/68 96
01/05/25 07:46 01/05/25 09:00 01/05/25 07:46 01/05/25 08:28 01/05/25 10:15
01/04/25 01/05/25 01/06/25
06:59 06:59 06:59
Actual Weight 100.6 kg 101 kg
01/05/25 04:57
01/05/25 04:57
PT 17.0 Sec (11.4-14.6) H 01/03/25 11:42
INR 1.35 01/03/25 11:42
APTT 129.6 Sec (23.4-35.0) H 01/03/25 04:53
Magnesium 2.3 mg/dl (1.6-2.3) 01/05/25 04:57
Triglycerides 126 mg/dl (10-149) 01/01/25 04:36
LDL Cholesterol, Calc 46 mg/dl 01/01/25 04:36
VLDL Cholesterol, Calc 25 mg/dl (0-30) 01/01/25 04:36
HDL Cholesterol 44 mg/dl 01/01/25 04:36
Physical Exam
Constitutional: No acute distress and Comfortable
EENT: Moist mucous membranes
Cardiovascular: Rhythm & rate is regular, Pedal edema is absent, JVD pressure is normal and Systolic murmur absent
Respiratory: Respiratory effort normal and Lungs clear to auscul.
Neuro/Psych: AO x 3
Data Reviewed
-
Date of Service: January 05, 2025
EKG: Other (Tele: AsVp)
Labs: Labs Reviewed by me
[2025-01-05 12:00] VITALS: BP 134/70
--- NOTE | 2025-01-05 12:00 | PTCARENOTE ---
Patient reassessed, assessment unchanged from previous. VSS, V paced on cardiac technologist. Patient denies pain at this time. CT to low wall suction, serosanguineous drainage. CBI maintained, light pink colored urine with small clots. Medications
administered as ordered. Will continue to monitor.
[2025-01-05] MEDS: NSS IV (12:42)
[2025-01-05] MEDS: LANTUS 0.12 UNITS SC (12:48)
[2025-01-05 12:51] LABS: Glucose - Point of Care 109 mg/dl (70-99)
[2025-01-05 15:29] VITALS: BP 133/87
[2025-01-05] MEDS: FERRLECIT 110 MG IV (15:29)
--- NOTE | 2025-01-05 16:36 | PTCARENOTE ---
AAOx3, without complaints. VSS, Vpaced with occasional PVCs on monitoring and evaluation advisor. CBI maintained, pink urine with occasional blood clots. L mediastinal CT to low wall suction, serosanguineous drainage. Medications administered as ordered. Patient
denies pain at this time. Will continue to monitor.
[2025-01-05 17:19] LABS: Glucose - Point of Care 154 mg/dl (70-99)
[2025-01-05] MEDS: NOVOLOG FLEXPEN-MODERATE RESISTANCE 1 UNITS SC (18:18)
[2025-01-05] MEDS: LIPITOR 40 MG PO (18:19)
[2025-01-05 19:58] VITALS: BP 119/105
--- NOTE | 2025-01-05 20:00 | PTCARENOTE ---
rec`d Pt at 1900 OOB to chair. AAOx3. V paced on monitor, Left chest tube to low wall suction, draining serosanguineous, -20, no air leak noted. CBI infusing, clear yellow urine. PIV flushed and patent. Productive cough, valdez in color. family at
bedside, call iniguez in reach. safe environment maintained.
[2025-01-05] MEDS: MUCINEX 1200 MG PO (20:22)
[2025-01-05] MEDS: TORADOL 15 MG IV (20:23)
[2025-01-06] VITALS (15 sets, daily range): BP systolic 87–156; BP diastolic 48–83; PULSE 79; O2SAT 94–96; BMI 36.1
--- NOTE | 2025-01-06 00:13 | W.PN.CT ---
Today's Communication / Plan
-
No issues overnight�
Plavix load (600mg) this AM � for PCI/ stent tomorrow; continue ASA 81mg daily, Plavix 75mg daily�
Maintain left pleural CT (monitor Left basilar atelectasis vs effusion)�
Continue meds (ASA, Lipitor, Plavix, Gabapentin, Metoprolol, Protonix)�
Encourage OOB/ IS�
CBI continues for additional clots (Maintain til Monday?)�
Assessment / Plan
-
- CAD with proximal LAD involvement- s/p Robotic assisted MIDCAB (single-vessel bypass JACKMAN in situ to LAD) by Dr. Lockwood on 01/03/25, pod #3
- Intraop MARQUIS: LVEF 60% pre and postop with no significant regional wma
- Moderate aortic valve stenosis
- Class 2 obesity with a BMI of 36
- Bifascicular block- s/p MDT pacer
- NSTEMI/ACS
- NSVT
- Syncope
- Previous [place] with stenting
- Tobacco abuse
- Hyperlipidemia
- Hypertension
- Acute postop blood loss anemia - no transfusion, s/p 250-300 of CellSaver Blood from the field
- Acute postop atelectasis
- Acute postop gross hematuria- 3-way catheter placed by Urology for bladder irrigation
- Acute postop hypovolemia with subsequent hypervolemia
- Suspected acute postop pericarditis/ + rub
Subjective
-
Date of Service: January 06, 2025
Objective Data
-
PT 17.0 Sec (11.4-14.6) H 01/03/25 11:42
INR 1.35 01/03/25 11:42
APTT 129.6 Sec (23.4-35.0) H 01/03/25 04:53
Vital Signs
Vital Signs
Temp Pulse Resp BP Pulse Ox
97.9 F 60 20 119/105 96
01/05/25 23:20 01/05/25 21:00 01/05/25 15:29 01/05/25 19:58 01/05/25 20:00
CT Intake/Output/Weight
01/05/25 01/05/25 01/06/25
06:59 18:59 06:59
Intake Total 480 / 1039 780 / 780
Output Total 140 / 1270 1020 / 1020
Balance 340 / -231 -240 / -240
SaO2: 96
Physical Exam
-
General: Awake
Cardiovascular: Regular rate & rhythm
Respiratory: Clear and Equal
Sternum: Stable
Incision: Clean, Dry and Intact
Extremities: No Edema
--- NOTE | 2025-01-06 00:30 | PTCARENOTE ---
CBI bag changed at 0000. pt reassessed, no changes in pt assessment. call iniguez in reach.
[2025-01-06 04:37] LABS: Hematocrit 33.3 % (39.0-52.0); Hemoglobin 10.7 g/dL (13.0-18.0); Mean Corp Hgb Conc. 32.1 g/dL (33.0-37.0); Mean Corpuscular Volume 83.5 fL (80.0-94.0); Platelet Count 178 10^3/uL (130-400); Red Cell Dist. Width 16.8 % (11.5-14.5)
[2025-01-06 05:03] LABS: Blood Urea Nitrogen 26 mg/dl (9-20); Calcium 9.3 mg/dl (8.4-10.2); Carbon Dioxide 26 mmol/L (22-30); Chloride 110 mmol/L (98-107); Estimated Creatinine Clearance 79 ml/min; Glucose 113 mg/dl (70-99); Magnesium 2.4 mg/dl (1.6-2.3); Potassium 4.0 mmol/L (3.5-5.1); Sodium 141 mmol/L (135-145); eGFR > 60.00
[2025-01-06] MEDS: TYLENOL 1000 MG PO ×3 (05:09→21:50)
--- NOTE | 2025-01-06 05:53 | PTCARENOTE ---
pt OOB to bathroom. pt had large loose BM. tolerated being OOB.
--- NOTE | 2025-01-06 06:12 | PTCARENOTE ---
OOB to chair after loose BM.
[2025-01-06 07:57] LABS: B.E. - POC -0.2 mmol/L; Glucose - POC 129 mg/dl (70-99); HCO3 - POC 26 mmol/L (21-28); Hematocrit - POC 36 % PCV (42-52); Hemodilution- POC No; Hemoglobin Calculated - POC 12.4; Ionized Calcium - POC 1.27 mmol/L (1.15-1.33); Lactate - POC < 0.30 mmol/L (0.36-0.75); O2 Saturation %Calculated-POC 99.9 % (94-98); PCO2 - POC 46 mmHg (35-48); PO2 - POC 283 mmHg (83-108); Potassium - POC 3.6 mmol/L (3.5-5.1); Sodium - POC 143 mmol/L (136-145); Specimen Type - POC Arterial; pH - POC 7.36 (7.35-7.45)
[2025-01-06] MEDS: PLAVIX 75 MG PO (08:53)
[2025-01-06] MEDS: VITAMIN B-12 1000 MCG PO (08:53)
[2025-01-06] MEDS: NEURONTIN 100 MG PO ×3 (08:53→21:50)
[2025-01-06] MEDS: LOW STRENGTH ASPIRIN 81 MG PO (08:53)
[2025-01-06] MEDS: BACTROBAN 2% OINTMENT 1 APPLIC NASAL ×2 (08:53→20:22)
[2025-01-06] MEDS: LOPRESSOR 12.5 MG PO ×2 (08:53→20:22)
[2025-01-06] MEDS: PROTONIX 40 MG PO (08:54)
[2025-01-06] MEDS: FARXIGA 10 MG PO (08:54)
[2025-01-06] MEDS: CELEXA 30 MG PO (08:54)
[2025-01-06] MEDS: MUCINEX 1200 MG PO ×2 (08:54→20:22)
[2025-01-06] MEDS: CYMBALTA DELAYED RELEASE 60 MG PO (08:55)
[2025-01-06] MEDS: PROTONIX PO (08:55)
[2025-01-06] MEDS: SENOKOT-S PO ×2 (08:55→20:22)
[2025-01-06] MEDS: MAGNESIUM OXIDE 500 MG PO (08:55)
[2025-01-06] MEDS: LIDOCAINE 4% PATCH TOPICAL (08:55)
--- NOTE | 2025-01-06 09:00 | PTCARENOTE ---
recieved PT from car shifter RN AAOx4 w/ no complaints of pain. V paced on monitor VSS; RA 97%O2 coughing up lots of mucous, L mediastinal CT w/ minimal drainage; GI diarrhea; CBI pink tinge colored urine; IV's wnl; see worklist for detailed
assessment
[2025-01-06] MEDS: NOVOLOG FLEXPEN-MODERATE RESISTANCE SC ×2 (10:10→15:42)
[2025-01-06 11:48] LABS: ACT-LR - POC 318 Seconds (116-155)
[2025-01-06 12:16] LABS: ACT-LR - POC 313 Seconds (116-155)
[2025-01-06 12:41] LABS: ACT-LR - POC 234 Seconds (116-155)
[2025-01-06 13:00] LABS: ACT-LR - POC 287 Seconds (116-155)
--- NOTE | 2025-01-06 13:37 | W.PN.CD ---
Today's Communication / Plan
-
PCI today via left radial artery
restart eliquis tonight (or heparin if preferred by surgery given ongoing hematuria/chest tube/etc.), plan for 3 week triple therapy then plavix/eliquis
start valsartan today for GDMT
Impression / Plan
-
Impression/Plan: 84M with CAD (IMI with BMS 2000), syncope with bifascicular block status post PPM, hypertension, dyslipidemia, aortic stenosis, and NSVT transferred from [facility] with ACS
Outpatient aviation tactical readiness officer: Dr. Grant
#NSTEMI s/p robotic assisted MIDCAB (single-vessel JACKMAN in situ to LAD) on 01/03/[address] Lockwood & PCI with 3.5x26 mm DESx1 to proximal LCx 01/06/[address] Dan
-EKG is paced.
-Pre-LVEF 60%, post LVEF 60% (TTE showed LVEF 40-45%), can consider limited study prior to discharge
-Echo shows apical akinesis/dyskinesis, new severe inferior basal hypokinesis and reduced LVEF (now 40-45%).
-Cath showed significant MV CAD (70+% ostial LAD, 90% mLAD, 80-90% pLCx and 70% ostial RPDA).
-s/p Plavix load, cont. ASA/Plavix/AC for 1 week, followed by Plavix/AC after 1 week for at least 6 months.
# Hematuria
-trend Cisneros output
#Cardiomyopathy
-LVEF now 40-45%.
-GDMT
-Diuretics: None, relatively euvolemic by LVEDP (16 mmHg)
-Beta blockers: Metoprolol 12.5 q12, transition to succinate before dischage
-ACEI/ARB/ARNi: start valsartan 40 mg BID today
-MRA: not yet
-SGLT2i: Farxiga
-ICD: PPM in place. ICD not currently indicated.
#Hypertension
-Chronic, stable.
-GDMT as above
#Paroxysmal atrial fibrillation/SSS (syncope)
-Chronic, s/p PPM, currently paced.
-4-hour episode of AF 09/10/2024 on device.
-Rate/rhythm control with metoprolol.
-[id number]: score at least 4 (HTN, age 75 or more, Vascular disease).
-Oral anticoagulation: to resume post PCI
#NSVT
- Stable without palpitations
- Most recent episode 11/22/2024.
#Hyperlipidemia
-Chronic, stable.
-Total cholesterol = 115, LDL = 46, HDL = 44, Triglycerides = 126.
-Continue atorvastatin.
#Mild/moderate Aortic stenosis
-Chronic.
-Peak/mean gradients 24/12 mmHg on echo, 23.3 mmHg on pullback during cath.
#Moderate Mitral stenosis on echo
-No meaningful gradient at cath.
#NIDDM2
-New diagnosis.
-HbA1c = 6.6%.
-He would benefit from GLP-1 analog given diagnosis of CAD.
#Obesity
-Chronic, BMI 37.
-He would benefit from weight loss - including GLP-1 analog.
DATA:
Transthoracic echocardiogram, 12/31/2024:
CONCLUSIONS
-Left ventricular ejection fraction is 40-45%. Akinesis/dyskinesis of the
apical regions; no LV thrombus present (contrast agent used). Severe basal
inferior hypokinesis. Abnormal (paradoxical) septal motion consistent with RV
pacemaker.
-Normal right ventricular size and function. Pacer wire seen in right
ventricle.
-Severely dilated left atrium.
-Moderate mitral stenosis; peak/mean gradients are 17/7 mmHg.
-Mild aortic stenosis; peak/mean gradients 21/11 mmHg.
Cardiac Catheterization, 01/01/2025:
CONCLUSIONS:
1. Right dominant circulation with a 30% lesion in the ostium of the RPDA followed by a patent stent with 20% ISR, a 30-40% lesion in the distal RCA at the crux and a 70% lesion in the ostium of the RPDA, a hazy, 80-90% lesion in the proximal
circumflex, and extremely short left main leading to nonselective imaging of the LAD, demonstrating a 70+ percent lesion in the ostium/proximal margin of the vessel with dampening of the catheter on engagement, and 90% lesion in the mid vessel
originating at the origin of D1.
2. Moderately elevated filling pressures (LVEDP = 20 mmHg, PCWP = 20 mmHg at 102.1 kg).
3. Mild postcapillary pulmonary hypertension (mean PA = 27 mmHg, PCWP = 20 mmHg, cardiac output = 5.04 L/min, PVR = 1.39 Hernández units), WHO group 2.
4. At least moderate aortic valve stenosis (mean gradient 23.3 mmHg on pullback, LILIBETH = 1.04 cm�).
5. No evidence of meaningful mitral valve stenosis.
6. Of note, after reviewing the films, we suffered a significant failure of the flat panel imaging system. Thankfully, the procedure was complete and the patient was removed from the table.
Physical Exam
Vital Signs/Labs
Vital Signs
Temp Pulse Resp BP Pulse Ox
36.6 C 79 16 137/48 96
01/06/25 08:00 01/06/25 10:00 01/06/25 08:00 01/06/25 07:20 01/06/25 00:14
01/05/25 01/06/25 01/07/25
06:59 06:59 06:59
Actual Weight 101 kg 101.3 kg
01/06/25 04:24
01/06/25 04:24
PT 17.0 Sec (11.4-14.6) H 01/03/25 11:42
INR 1.35 01/03/25 11:42
APTT 129.6 Sec (23.4-35.0) H 01/03/25 04:53
Magnesium 2.4 mg/dl (1.6-2.3) H 01/06/25 04:24
Triglycerides 126 mg/dl (10-149) 01/01/25 04:36
LDL Cholesterol, Calc 46 mg/dl 01/01/25 04:36
VLDL Cholesterol, Calc 25 mg/dl (0-30) 01/01/25 04:36
HDL Cholesterol 44 mg/dl 01/01/25 04:36
Physical Exam
Constitutional: Comfortable
Cardiovascular: Rhythm & rate is regular
Respiratory: Respiratory effort normal
Neuro/Psych: AO x 3
Data Reviewed
-
Date of Service: January 06, 2025
Medical Decision Making: Reviewed Test Results
EKG: Tracing Personally Visualized and interpreted
Echo: Tracing Personally Visualized and interpreted
X-Ray/CT/US/MRI/NUC/PET: Image Personally Visualized and interpreted
Labs: Labs Reviewed by me
--- NOTE | 2025-01-06 15:05 | CM ---
Reviewed chart. Met with and Mrs. Moreno to review discharge plans. He states he is feeling well today. He states prior to admission he resides with his spouse in a two story home without any steps to enter. He states he has a first floor
set-up. He states prior to admission he ambulates with a walker. He states he has a walker, single point cane and a shower chair at home. He has a prescription plan with [employer] and uses [facility]. His spouse states she will be home to assist
in his care if needed. We reviewed a home visit by the Transitional Care Nurse. He is agreeable to a home visit. Medical work-up in progress. The discharge plan is to return home with his spouse and a home visit by the Transitional Care Nurse
when medically stable.
[2025-01-06] MEDS: NSS IV (15:24)
[2025-01-06] MEDS: TYLENOL PO (15:26)
[2025-01-06 15:35] LABS: Glucose - Point of Care 118 mg/dl (70-99)
[2025-01-06] MEDS: FERRLECIT 110 MG IV (15:43)
[2025-01-06] MEDS: LIPITOR 40 MG PO (17:53)
--- NOTE | 2025-01-06 19:15 | ITS.CL.PN ---
[facility] - Procedure Note
Procedure
Procedure Note:
CARDIAC CATHETERIZATION REPORT
Date of Procedure: 01/06/2025
Referring: Dr. Yvon Lockwood MD
Indication: Complete revascularization in the setting of NSTEMI post robotic JACKMAN to LAD
PROCEDURE(S)
1. left heart catheterization
2. bypass graft angiography
3. IVUS LCx
4. PCI with DEBORA to LCx
5. iFR RCA
ACCESS: 6F left radial artery (closure: radial band)
CATHETERS
1. 6F MELISSA
2. 6F pigtail
3. 6F XB3.5 guide catheter
4. 6F JR4 guide catheter
MODERATE SEDATION: 60 minutes of moderate sedation was utilized. An independent medical record coder was present to assist with and help manage the patient's level of consciousness and physiologic status.
HEMODYNAMIC DATA
LV 120/9 (EDP 16) mmHg
AO 107/62 (mean 77) mmHg
BYPASS GRAFT ANGIOGRAPHY:
JACKMAN-LAD: the JACKMAN is taken as a pedicle and forms an anastomosis with the mid-LAD. The JACKMAN is widely patent
IVUS guided PCI with DEBORA to LCx
Heparin was given to achieve ACT greater than 300. Initial lesion preparation was performed with a 2.5 x 12 semi compliant balloon with full expansion. IVUS was unable to advance due to the tortuous and calcified nature of the lesion. A 6 [place]
GuideLiner was thus advanced over a 3.0 NC balloon and serial inflation of the 3 oh NC balloon used to perform additional lesion preparation. IVUS was then able to be advanced and demonstrated a 3.5 mm reference vessel diameter with nonconcentric
calcification. A 3.5 x 26 mm [place] frontier drug-eluting stent was deployed at 12 zelda. Post dilation was attempted with a three 5 x 12 NC balloon but unfortunately the balloon was unable to pass beyond the proximal stent edge due to significant bias
towards the stent edge in the setting of tortuosity. I attempted balloon assisted tracking and into remaining of the guide liner back into the stent unsuccessfully. Using sergio wiring the 3.5 NC balloon was able to be advanced successfully and post
dilation was performed throughout the stent to 15 zelda. Angiographic result was excellent. In the course of of multiple manipulations of the GuideLiner and attempts at advancing equipment through the ostial circumflex, there appeared to be narrowing
of the ostial circumflex not previously appreciated. This was concerning for iatrogenic dissection versus spasm. Intracoronary nitroglycerin was given with mild improvement in the appearance of the ostial circumflex. IVUS was performed but the
resolution of the catheter did not allow for definitive assessment of the nature of the ostial circumflex which appeared to have disease but not necessarily injury to the vessel wall. Both wires were removed to relieve any component of wire bias
causing the vessel appearance. Further intracoronary nitroglycerin was given, with further improvement of the vessel appearance noted which now had only mild stenosis compared to initial angiography. The wire and guide were removed and attention
turned to the right coronary artery.
iFR of RCA
An Omni wire was flushed and zeroed outside the body and then advanced to the proximal RCA. Angiography was performed with a guide catheter which suggested the ostium of the RPDA to be less severely diseased than previously reported, likely no more
than 50% focally. The wire introducer was removed and the catheter flushed with saline, after which pressure of the wire and guide were normalized. With significant difficulty, the Omni wire was advanced to the RPDA. The pressure transducer portion
of the wire was unable to be advanced past the ostium of the RPDA due to significant tortuosity and diffuse disease throughout the proximal to distal vessel. At this point, iFR was 0.85 suggesting that the vessel is diffusely diseased and
revascularization of the RPDA would require not only crossover stenting into the RPDA itself, but significant PCI of the remainder of the proximal vessel. Given that the angiographic appearance of the vessel is more suggestive of mild less than 50%
disease throughout, the decision was made to medically manage this vessel. The iFR wire was removed and final angiography performed demonstrating stable vessel appearance.
CONCLUSIONS
1. Bypass graft angiography demonstrates widely patent JACKMAN to LAD
2. Left heart cath demonstrates mildly elevated LV filling pressure and known moderate aortic valve stenosis.
3. Successful IVUS guided PCI to the proximal circumflex with a 3.5 x 26 mm [place] frontier drug-eluting stent postdilated throughout to 15 zelda of the 3 5 noncompliant balloon.
4. Angiography and iFR of the RCA suggestive of noncritical diffuse disease not amenable for PCI
RECOMMENDATIONS
1. Continue triple therapy with aspirin, Plavix, and Eliquis for 1 week followed by Plavix and Eliquis for 6 months.
2. Aggressive secondary prevention of coronary artery disease, goal LDL<55
3. Titration of GDMT for heart failure with mildly reduced ejection fraction
4. continued serial monitoring of moderate aortic valve stenosis with outpatient serial echo
Copy to: Dr. Corey Grant MD (trousseau consultant); Lea Vargas NP (PCP)
Signed: Saad Dan MD, PhD
--- NOTE | 2025-01-06 19:30 | PTCARENOTE ---
assumed care of pt from previous RN. pt A&Ox4, resting in bed at time of assessment. 100% v-paced w/ PPM on tele-monitor. POX 95% on RA. abd s/n, +BS. pt confirms solid BMs. 3-way catheter w/ CBI, draining pink-tinged urine, free of clots. all
surgical sites stable, CDI. PIV intact. see worklist for complete nursing assessment, interventions, VS, and I&Os.
[2025-01-06] MEDS: ELIQUIS 5 MG PO (20:22)
[2025-01-06] MEDS: DIOVAN 40 MG PO (20:22)
[2025-01-07] VITALS (8 sets, daily range): BP systolic 117–153; BP diastolic 51–88; PULSE 81; O2SAT 93–98; BMI 35.9
--- NOTE | 2025-01-07 00:30 | PTCARENOTE ---
assessment remains unchanged. VSS.
[2025-01-07] MEDS: MELATONIN 5 MG PO (00:44)
--- NOTE | 2025-01-07 01:10 | W.PN.CT ---
Today's Communication / Plan
-
Plan:
-No major issues overnight. Hemodynamically and neurologically intact
-Per Dr. Dan, triple therapy with ASA/Plavix/Eliquis x 1wk, to be followed by Plavix/Eliquis
-Noted hematuria requiring CBI, clear this AM, Urology following
-Diabetes education/management following newly diagnosed diabetes
-OOB into chair/Ambulate
-Likely home today
Assessment / Plan
-
- CAD with proximal LAD involvement- s/p Robotic assisted MIDCAB (single-vessel bypass JACKMAN in situ to LAD) by Dr. Lockwood on 01/03/25, pod #4
- Intraop MARQUIS: LVEF 60% pre and postop with no significant regional wma
-S/P Successful PCI to the proximal circumflex with a 3.5 x 26 mm [place] frontier drug-eluting stent postdilated throughout to 15 zelda of the 3 5 noncompliant balloon, by Dr. Dan, 01/06/25
- LVEF 45-50%, per MARQUIS 01/03/25
- Non-critical RCA disease not amendable to PCI, medical management
- Moderate aortic valve stenosis
- Bifascicular block- s/p MDT pacer
- NSTEMI/ACS
- NSVT
- Syncope
- Previous [place] with stenting
- Tobacco abuse
- Hyperlipidemia
- Hypertension
- Class 2 obesity with a BMI of 36
- New a-fib (09/10/24)
- Newly diagnose T2DM (A1C 6.6)
- BPH
- Acute postop blood loss anemia - no transfusion, s/p 250-300 of CellSaver Blood from the field
- Acute postop atelectasis
- Acute postop gross hematuria- 3-way catheter placed by Urology for bladder irrigation
- Acute postop hypovolemia with subsequent hypervolemia
- Suspected acute postop pericarditis/ + rub
- Acute postop hematuria requiring CBI
Discussed patient care with: Cardiology, Nursing, Respiratory Therapy, Pharmacy and Care Team
Subjective
Procedure
-s/p Robotic assisted MIDCAB (single-vessel bypass JACKMAN in situ to LAD) by Dr. Lockwood on 01/03/25
-S/P Successful PCI to the proximal circumflex with a 3.5 x 26 mm [place] frontier drug-eluting stent postdilated throughout to 15 zelda of the 3 5 noncompliant balloon, by Dr. Dan, 01/06/25
-
Date of Service: January 07, 2025
C/o mild left shoulder pain with movement
Objective Data
-
PT 17.0 Sec (11.4-14.6) H 01/03/25 11:42
INR 1.35 01/03/25 11:42
APTT 129.6 Sec (23.4-35.0) H 01/03/25 04:53
Vital Signs
Vital Signs
Temp Pulse Resp BP Pulse Ox
98.5 F 80 16 138/76 93
01/07/25 00:30 01/07/25 00:19 01/07/25 00:30 01/07/25 00:19 01/07/25 00:30
CT Intake/Output/Weight
01/06/25 01/06/25 01/07/25
06:59 18:59 06:59
Output Total 1350 / 2370 600 / 1800 1200 / 1800
Balance -1350 / -1590 -600 / -1800 -1200 / -1800
SaO2: 93 (RA)
Physical Exam
-
General: Awake, Oriented and AOx3
Cardiovascular: Regular rate & rhythm, No Murmurs, No Rub and No Gallop
Respiratory: Decreased Breath Sounds (at bases)
Incision: Clean, Dry, Intact and Dressing Intact
Extremities: Other (+trace edema)
Data Reviewed
-
Lab Results: Results Reviewed
Medications: Active Meds Reviewed
Chest X-Ray: Report Reviewed and Image Reviewed
ECG: Report Reviewed and Image Reviewed
--- NOTE | 2025-01-07 03:15 | PTCARENOTE ---
Addendum entered by Marianna Vargas RN 01/07/25 03:20:
AM labs collected and sent.
Original Note:
no acute changes. VSS. pt assisted to bathroom.
[2025-01-07 03:31] LABS: Hematocrit 31.3 % (39.0-52.0); Hemoglobin 10.1 g/dL (13.0-18.0); Mean Corp Hgb Conc. 32.3 g/dL (33.0-37.0); Mean Corpuscular Volume 83.7 fL (80.0-94.0); Platelet Count 206 10^3/uL (130-400); Red Cell Dist. Width 17.2 % (11.5-14.5)
[2025-01-07 03:55] LABS: Blood Urea Nitrogen 20 mg/dl (9-20); Calcium 9.1 mg/dl (8.4-10.2); Carbon Dioxide 24 mmol/L (22-30); Chloride 109 mmol/L (98-107); Estimated Creatinine Clearance 79 ml/min; Glucose 123 mg/dl (70-99); Magnesium 2.3 mg/dl (1.6-2.3); Potassium 4.1 mmol/L (3.5-5.1); Sodium 139 mmol/L (135-145); eGFR > 60.00
[2025-01-07] MEDS: TYLENOL 1000 MG PO (05:38)
--- NOTE | 2025-01-07 08:26 | PTCARENOTE ---
Patient received from shift superintendent caustic cresylate resting oob in chair, AAO x 3, states pain controlled at this time. V-paced via cm, SaO2 @ 97% on RA. All procedural sites stable. CBI/indwelling urinary catheter d/c'd as ordered, patient tolerated well. Patient
updated to plan of care for the day, in agreement. See work list for full assessment and interventions performed.
[2025-01-07] MEDS: PROTONIX 40 MG PO (08:33)
[2025-01-07] MEDS: BACTROBAN 2% OINTMENT 1 APPLIC NASAL (08:33)
[2025-01-07] MEDS: VITAMIN B-12 1000 MCG PO (08:34)
[2025-01-07] MEDS: ELIQUIS 5 MG PO (08:34)
[2025-01-07] MEDS: LOW STRENGTH ASPIRIN 81 MG PO (08:34)
[2025-01-07] MEDS: MUCINEX 1200 MG PO (08:34)
[2025-01-07] MEDS: CELEXA 30 MG PO (08:34)
[2025-01-07] MEDS: FARXIGA 10 MG PO (08:34)
[2025-01-07] MEDS: PLAVIX 75 MG PO (08:34)
[2025-01-07] MEDS: CYMBALTA DELAYED RELEASE 60 MG PO (08:34)
[2025-01-07] MEDS: LOPRESSOR 12.5 MG PO (08:34)
[2025-01-07] MEDS: DIOVAN 40 MG PO (08:35)
[2025-01-07] MEDS: NEURONTIN 100 MG PO (08:35)
[2025-01-07] MEDS: SENOKOT-S PO (08:35)
[2025-01-07] MEDS: PROTONIX PO (08:35)
[2025-01-07 08:43] LABS: Glucose - Point of Care 131 mg/dl (70-99)
[2025-01-07] MEDS: NOVOLOG FLEXPEN-MODERATE RESISTANCE SC ×2 (08:46→09:15)
[2025-01-07] MEDS: LIDOCAINE 4% PATCH TOPICAL (09:12)
[2025-01-07] MEDS: NSS IV (09:15)
--- NOTE | 2025-01-07 09:53 | W.PN.CD ---
Today's Communication / Plan
-
doing well post PCI
plan for discharge today
Impression / Plan
-
Impression/Plan: 84M with CAD (IMI with BMS 2000), syncope with bifascicular block status post PPM, hypertension, dyslipidemia, aortic stenosis, and NSVT transferred from [facility] with ACS
Outpatient tour leader: Dr. Grant
#NSTEMI s/p robotic assisted MIDCAB (single-vessel JACKMAN in situ to LAD) on 01/03/[address] Lockwood & PCI with 3.5x26 mm DESx1 to proximal LCx 01/06/[address] Dan
-EKG is paced.
-Pre-LVEF 60%, post LVEF 60% (TTE showed LVEF 40-45%), can consider limited study prior to discharge
-Echo shows apical akinesis/dyskinesis, new severe inferior basal hypokinesis and reduced LVEF (now 40-45%).
-Cath showed significant MV CAD (70+% ostial LAD, 90% mLAD, 80-90% pLCx and 70% ostial RPDA).
-s/p Plavix load, cont. ASA/Plavix/AC for 1 week, followed by Plavix/AC after 1 week for at least 6 months.
# Hematuria, imporved
#Cardiomyopathy
-LVEF now 40-45%.
-GDMT
-Diuretics: None, relatively euvolemic by LVEDP (16 mmHg)
-Beta blockers: Metoprolol 12.5 q12, convert to succinate 25 mg daily
-ACEI/ARB/ARNi: cont. valsartan 40 mg BID today
-MRA: not yet
-SGLT2i: Farxiga
-ICD: PPM in place. ICD not currently indicated.
#Hypertension
-Chronic, stable.
-GDMT as above
#Paroxysmal atrial fibrillation/SSS (syncope)
-Chronic, s/p PPM, currently paced.
-4-hour episode of AF 09/10/2024 on device.
-Rate/rhythm control with metoprolol.
-[id number]: score at least 4 (HTN, age 77 or more, Vascular disease).
-Oral anticoagulation: to resume post PCI
#NSVT
- Stable without palpitations
- Most recent episode 11/22/2024.
#Hyperlipidemia
-Chronic, stable.
-Total cholesterol = 115, LDL = 46, HDL = 44, Triglycerides = 126.
-Continue atorvastatin.
#Mild/moderate Aortic stenosis
-Chronic.
-Peak/mean gradients 24/12 mmHg on echo, 23.3 mmHg on pullback during cath.
#Moderate Mitral stenosis on echo
-No meaningful gradient at cath.
#NIDDM2
-New diagnosis.
-HbA1c = 6.6%.
-He would benefit from GLP-1 analog given diagnosis of CAD.
#Obesity
-Chronic, BMI 37.
-He would benefit from weight loss - including GLP-1 analog.
DATA:
Transthoracic echocardiogram, 12/31/2024:
CONCLUSIONS
-Left ventricular ejection fraction is 40-45%. Akinesis/dyskinesis of the
apical regions; no LV thrombus present (contrast agent used). Severe basal
inferior hypokinesis. Abnormal (paradoxical) septal motion consistent with RV
pacemaker.
-Normal right ventricular size and function. Pacer wire seen in right
ventricle.
-Severely dilated left atrium.
-Moderate mitral stenosis; peak/mean gradients are 17/7 mmHg.
-Mild aortic stenosis; peak/mean gradients 21/11 mmHg.
Cardiac Catheterization, 01/01/2025:
CONCLUSIONS:
1. Right dominant circulation with a 30% lesion in the ostium of the RPDA followed by a patent stent with 20% ISR, a 30-40% lesion in the distal RCA at the crux and a 70% lesion in the ostium of the RPDA, a hazy, 80-90% lesion in the proximal
circumflex, and extremely short left main leading to nonselective imaging of the LAD, demonstrating a 70+ percent lesion in the ostium/proximal margin of the vessel with dampening of the catheter on engagement, and 90% lesion in the mid vessel
originating at the origin of D1.
2. Moderately elevated filling pressures (LVEDP = 20 mmHg, PCWP = 20 mmHg at 102.1 kg).
3. Mild postcapillary pulmonary hypertension (mean PA = 27 mmHg, PCWP = 20 mmHg, cardiac output = 5.04 L/min, PVR = 1.39 Hernández units), WHO group 2.
4. At least moderate aortic valve stenosis (mean gradient 23.3 mmHg on pullback, LILIBETH = 1.04 cm�).
5. No evidence of meaningful mitral valve stenosis.
6. Of note, after reviewing the films, we suffered a significant failure of the flat panel imaging system. Thankfully, the procedure was complete and the patient was removed from the table.
Physical Exam
Vital Signs/Labs
Vital Signs
Temp Pulse Resp BP Pulse Ox
37.0 C 85 15 126/81 97
01/07/25 07:42 01/07/25 08:35 01/07/25 07:42 01/07/25 08:35 01/07/25 08:21
01/06/25 01/07/25 01/08/25
06:59 06:59 06:59
Actual Weight 101.3 kg 100.8 kg
01/07/25 03:07
01/07/25 03:07
PT 17.0 Sec (11.4-14.6) H 01/03/25 11:42
INR 1.35 01/03/25 11:42
APTT 129.6 Sec (23.4-35.0) H 01/03/25 04:53
Magnesium 2.3 mg/dl (1.6-2.3) 01/07/25 03:07
Triglycerides 126 mg/dl (10-149) 01/01/25 04:36
LDL Cholesterol, Calc 46 mg/dl 01/01/25 04:36
VLDL Cholesterol, Calc 25 mg/dl (0-30) 01/01/25 04:36
HDL Cholesterol 44 mg/dl 01/01/25 04:36
Physical Exam
Constitutional: Comfortable
Cardiovascular: Rhythm & rate is regular
Respiratory: Respiratory effort normal
Neuro/Psych: AO x 3
Other: Cath Site (cdi)
Data Reviewed
-
Date of Service: January 07, 2025
Medical Decision Making: Reviewed Test Results
Labs: Labs Reviewed by me
--- NOTE | 2025-01-07 12:24 | PTCARENOTE ---
VS obtained, assessment stable. Patient denies pain, resting oob.
--- NOTE | 2025-01-07 13:23 | W.DCSUMMARY ---
Addendum entered and electronically signed by NESSA Lorenzo 01/07/25 15:53:
Patient stated he could not afford Eliquis. Dr. Marquis notified and stated patient may continue aspirin and Plavix until seen by cardiology for further plan for history of A-fib.
Original Note:
Discharge Summary
Discharge Data
Date of Admission: 12/31/24
Date of Discharge: 01/07/25
-
Pending Results: No
Hospital Course
Primary care physician: Ninoska Vargas
Outpatient embossing press operator apprentice: Jovan Grant
Inpatient consultants: [facility] Cardiology, pulmonary linen keeper, urology
Procedures:
1. MIDCAB x 1
Primary Diagnosis:
1. NSTEMI/3VCAD
Secondary Diagnoses:
1. Moderate aortic valve stenosis
2. Class II obesity (BMI of 36)
3. Bifascicular block s/p MDT PPM
4. NSVT
5. Syncope
6. Previous SD with stenting
7. Tobacco abuse
8. Hyperlipidemia
9. Hypertension
10. New a-fib (09/10/24)
11. Newly diagnose T2DM (A1C 6.6)
12. BPH
13. Acute post-op respiratory insufficiency
14. Acute postop blood loss anemia - no transfusion
15. Acute postop gross hematuria- 3-way catheter placed by Urology for continuous bladder irrigation
16. Acute postop hypovolemia with subsequent hypervolemia
17. Suspected acute postop pericarditis/ + rub
HPI: Guillermo Moreno is an 84-year-old male with a past medical history significant for CAD (BMS 2000), syncope with bifascicular block status post PPM, hypertension, dyslipidemia, aortic stenosis, and NSVT who presented to [facility] with
bilateral arm pain for approximately 5 weeks and reminiscent of his prior SD. He was found to have an abnormal troponin and requested transfer to [facility] for continuation of care.
Hospital course: Patient was transferred to [facility] on 12/27/2024. He is pain-free on admission. Preop cardiac surgery workup ensued and carotid ultrasound revealed less than 50% bilateral carotid stenosis. Discussed with cardiology with plan for
staged intervention including CABG followed by PCI. Patient was taken to the operating room on 01/03/2025 and underwent a MIDCAB x 1 JACKMAN [address] LAD [address] Yvon Lockwood. Postprocedure MARQUIS reported EF of 45-50% which improved from preop 40-45%. He was
extubated in the operating room and required BiPAP immediately postop for hypercapnia. Patient experienced gross hematuria upon return to CVICU and urology was consulted. CBI was initiated and recommended to be continued until PCI completed.
Patient was loaded with Plavix 600 mg on postoperative day #2. On 01/06/2025, patient drug-eluting stent to the proximal left circumflex artery. Patient tolerated procedure well and was returned to room. Chest tube was removed without incident.
Eliquis was initiated and patient will continue with triple therapy (Eliquis, Plavix, aspirin0 x 1 week then decrease to Eliquis and Plavix only for history of A-fib. This regimen will continue for approximately 6 months per cardiology. On
postoperative day #4, Cisneros catheter was removed and patient voided without incident. Patient ambulated in hallway without difficulty. Patient had been evaluated and recommended Farxiga but patient declined due to cost.
Home medication changes:
see below
Discharge Plan
-
Patient Disposition: Home (Routine Discharge)
Discharge Diagnosis/Procedures: MIDCAB x 1 (JACKMAN-LAD)/staged Angioplasty and stent to Left Circumflex artery
Condition: Fair
Diet: Low Cholesterol and Low Sodium
Activity: No strenuous activity
Driving Restrictions: Not until seen by your Dr
Bathing Restrictions: OK to Shower
Other Services: Cardiac Rehab
Specialty Instructions: Weigh Daily- Call MD for wt gain/loss 3 lbs overnight/5 lbs in 1 week
Activity Restrictions/Additional Instructions:
Please call [facility] Phase 2 Cardiac Rehab to schedule your first visit at [phone]
Stand Alone Forms: DC Instructions- Cath/EP Lab
Referrals:
CT Transitional Care Nurse [Outside]
Referral Note:
The Cardiothoracic Transitional Care Nurse will call you to set up a visit in 1-2 days.
Radha Nichols NP [Specified Professional Personl, Cardiology] - 02/24/25 11:00 am
Lea Vargas CRNP [Family Provider, General]
Jovan Grant MD [Active, Cardiology] - 01/28/25 10:40 am
Renetta Pratt CRNP [Specified Professional Personl, Cardiac Surgery] - 02/03/25 9:30 am
Additional Discharge Medication Instructions: Aspirin for 7 days only -take with clopidogrel AND Eliquis, then take LIYAH clopidogrel AND Eliquis
Prescriptions:
New
clopidogrel 75 mg Tablet
75 mg PO DAILY Qty: 30 2RF
aspirin 81 mg Tablet,Chewable
81 mg PO DAILY Qty: 7 0RF
Eliquis 5 mg Tablet
5 mg PO BID Qty: 60 2RF
pantoprazole 40 mg Tablet,Delayed Release (Dr/Ec)
40 mg PO DAILY Qty: 30 2RF
metoprolol succinate [Toprol XL] 25 mg tablet extended release 24 hr
25 mg PO DAILY Qty: 30 2RF
valsartan 40 mg Tablet
40 mg PO BID Qty: 60 2RF
furosemide [Lasix] 20 mg tablet
20 mg PO .daily prn Qty: 5 0RF
Continued
nitroglycerin 0.4 MG tablet, sublingual
1 spry sublingual PRN PRN (Reason: chest pain)
Patient Comments:
give 1 spray every 5 minutes to total of 3 doses
Probiotic and Acidophilus 1 EACH capsule
1 cap PO BID PRN (Reason: prn)
tramadol 50 mg Tablet
50 mg PO Q6H PRN (Reason: arthritis pain)
atorvastatin 40 MG tablet
40 mg PO HS Qty: 0 0RF
ascorbic acid (vitamin C) [Vitamin C] 1,000 MG tablet
1,000 mg PO DAILY Qty: 0 0RF
citalopram 20 MG tablet
30 mg PO DAILY Qty: 0 0RF
duloxetine 60 mg Capsule,Delayed Release(Dr/Ec)
60 mg PO DAILY Qty: 0 0RF
mecobalamin (vitamin B12) 1,000 MCG tablet,disintegrating
1,000 mcg sublingual DAILY Qty: 0 0RF
alfuzosin 10 MG tablet extended release 24 hr
20 mg PO HS Qty: 0 0RF
Patient Comments:
pt could NOT verify dosage for me but stated he takes '2 tabs'. Lui Acosta, Admission RN
Discontinued
aspirin 81 MG tablet,delayed release (DR/EC)
81 mg PO DAILY
omeprazole [Prilosec] 20 MG capsule,delayed release(DR/EC)
20 mg PO DAILY
metoprolol tartrate 25 MG tablet
25 mg PO DAILY
oxycodone-acetaminophen 5 MG/325 MG tablet
1 tab PO Q4HPRN PRN (Reason: MODERATE PAIN) Qty: 20 0RF
Rx Instructions:
OK to take half a pill if 1 pill is too much.
zinc sulfate 220 MG capsule
220 mg PO DAILY Qty: 14 0RF
Rx Instructions:
Take 220 mg daily for 14 days
celecoxib [Celebrex] 200 mg Capsule
200 mg PO DAILY
Discharge Orders:
Discharge Patient (As Directed); Ordered 01/07/25
Ordered By: Heidi Hernandez
Discharge Date and Time
Print Language: DIVEHI
--- NOTE | 2025-01-07 14:26 | CM ---
Reviewed chart. Met with and Mrs. Moreno to review discharge plans. He states he feels well and maybe able to go home soon. We reviewed a home visit by the Transitional Care Nurse. He is agreeable to a home visit. Prior to admission he
resides with his spouse in a two story without any steps to enter. He has a first floor set-up. He has a walker, single point cane and shower chair at home. He ambulated in the hallway today. He has a prescription plan with [employer] and uses [facility]. Medical work up in progress. The discharge plan is to return home with his spouse and a home visit by the Transitional Care Nurse when medically stable.
--- NOTE | 2025-01-07 15:18 | PTCARENOTE ---
Patient set up to shower, completed independently. PIV removed. Discharge instructions thoroughly reviewed w/patient, spouse, daughter via phone - medications clarified w/CTNP and Dr. Dan. Patient and all belongings transported to waiting
vehicle for d/c home.
== END 2025-01-07 16:35 | disposition home or self-care (01) | DRG 231 ==
LOC: CVICU 14:45
PROVIDERS: Anesthesiology; Internal Medicine Cardiovascular Disease; Nurse Practitioner; Nurse Practitioner Gerontology; Physician Assistant; Physician Assistant Medical; Student in an Organized Health Care Education/Training Program; ADMITTING PHYSICIAN Internal Medicine; ATTENDING PHYSICIAN Thoracic Surgery (Cardiothoracic Vascular Surgery); CONSULT PHYSICIAN Internal Medicine; CONSULT PHYSICIAN Internal Medicine Critical Care Medicine; CONSULT PHYSICIAN Surgery; FAMILY PHYSICIAN Nurse Practitioner
PROC: B2151ZZ Fluoroscopy of Left Heart using Low Osmolar Contrast (ICD-10-PCS; 2025-01-01)
PROC: B2111ZZ Fluoroscopy of Multiple Coronary Arteries using Low Osmolar Contrast (ICD-10-PCS; 2025-01-01)
PROC: 4A023N8 Measurement of Cardiac Sampling and Pressure, Bilateral, Percutaneous Approach (ICD-10-PCS; 2025-01-01)
PROC: B24BZZ4 Ultrasonography of Heart with Aorta, Transesophageal (ICD-10-PCS; 2025-01-03)
PROC: 02100Z9 Bypass Coronary Artery, One Artery from Left Internal Mammary, Open Approach (ICD-10-PCS; 2025-01-03)
PROC: 8E0W0CZ Robotic Assisted Procedure of Trunk Region, Open Approach (ICD-10-PCS; 2025-01-03)
PROC: 5A09357 Assistance with Respiratory Ventilation, Less than 24 Consecutive Hours, Continuous Positive Airway Pressure (ICD-10-PCS; 2025-01-03)
PROC: 4A023N7 Measurement of Cardiac Sampling and Pressure, Left Heart, Percutaneous Approach (ICD-10-PCS; 2025-01-06)
PROC: 4A033BC Measurement of Arterial Pressure, Coronary, Percutaneous Approach (ICD-10-PCS; 2025-01-06)
PROC: B2181ZZ Fluoroscopy of Left Internal Mammary Bypass Graft using Low Osmolar Contrast (ICD-10-PCS; 2025-01-06)
PROC: B240ZZ3 Ultrasonography of Single Coronary Artery, Intravascular (ICD-10-PCS; 2025-01-06)
PROC: 027034Z Dilation of Coronary Artery, One Artery with Drug-eluting Intraluminal Device, Percutaneous Approach (ICD-10-PCS; 2025-01-06)
DX: I21.4 Non-ST elevation (NSTEMI) myocardial infarction (principal); I50.21 Acute systolic (congestive) heart failure; I45.2 Bifascicular block; I47.20 Ventricular tachycardia, unspecified; I31.2 Hemopericardium, not elsewhere classified; T82.855A Stenosis of coronary artery stent, initial encounter; D62 Acute posthemorrhagic anemia; I42.9 Cardiomyopathy, unspecified; J98.11 Atelectasis; I25.10 Atherosclerotic heart disease of native coronary artery without angina pectoris; I11.0 Hypertensive heart disease with heart failure; N40.0 Benign prostatic hyperplasia without lower urinary tract symptoms; E78.00 Pure hypercholesterolemia, unspecified; E66.812 Obesity, class 2; I08.0 Rheumatic disorders of both mitral and aortic valves; M19.90 Unspecified osteoarthritis, unspecified site; E11.65 Type 2 diabetes mellitus with hyperglycemia; Y83.1 Surgical operation with implant of artificial internal device as the cause of abnormal reaction of the patient, or of later complication, without mention of misadventure at the time of the procedure; N20.0 Calculus of kidney; R06.89 Other abnormalities of breathing; R31.0 Gross hematuria; E86.1 Hypovolemia; I27.20 Pulmonary hypertension, unspecified; I48.0 Paroxysmal atrial fibrillation; I65.23 Occlusion and stenosis of bilateral carotid arteries; I25.2 Old myocardial infarction; Z68.35 Body mass index [BMI] 35.0-35.9, adult; Z79.82 Long term (current) use of aspirin; Z79.899 Other long term (current) drug therapy; Z87.891 Personal history of nicotine dependence; Z95.0 Presence of cardiac pacemaker; Z95.5 Presence of coronary angioplasty implant and graft
CPT/HCPCS: 36600; 71045; 71046; 80048; 80053; 80061; 81003; 81015; 82248; 82330; 82565; 82805; 82947; 82962; 83036; 83735; 84132; 84302; 84484; 84520; 85014; 85018; 85027; 85049; 85347; 85610; 85730; 86850; 86900; 86901; 86920; 87070; 92978; 93005; 93308; 93312; 93320; 93321; 93325; 93459; 93460; 93880; 94660; 99152; 99153; C1725; C1753; C1769; C1874; C1887; C1894; C9600; J2916; P9045; Q9950; Q9967

== ENCOUNTER → 2025-04-10 14:54 | Outpatient (REF) | payer MEDICARE, OTHER, SELFPAY | LOC: HWRCS 14:54 | PROVIDERS: ATTENDING PHYSICIAN Nurse Practitioner; FAMILY PHYSICIAN Nurse Practitioner | DX: I44.30 Unspecified atrioventricular block (principal); I25.10 Atherosclerotic heart disease of native coronary artery without angina pectoris; I10 Essential (primary) hypertension; I48.0 Paroxysmal atrial fibrillation | CPT/HCPCS: 93306 ==

== ENCOUNTER → 2025-04-28 12:12 | Outpatient (REF) | payer MEDICARE, OTHER, SELFPAY ==
[2025-04-28 13:36] LABS: Blood Urea Nitrogen 15 mg/dl (9-20); Calcium 9.5 mg/dl (8.4-10.2); Carbon Dioxide 27 mmol/L (22-30); Chloride 107 mmol/L (98-107); Glucose 105 mg/dl (70-99); Potassium 4.5 mmol/L (3.5-5.1); Sodium 139 mmol/L (135-145); eGFR > 60.00
== END ==
LOC: SDSPAT 12:12
PROVIDERS: ATTENDING PHYSICIAN Internal Medicine Cardiovascular Disease; FAMILY PHYSICIAN Nurse Practitioner; OTHER PHYSICIAN Student in an Organized Health Care Education/Training Program
DX: I44.30 Unspecified atrioventricular block (principal)
CPT/HCPCS: 36415; 80048

== ENCOUNTER 2025-05-02 09:46 | Day surgery (SDC) | payer MEDICARE, OTHER, SELFPAY ==
[2025-05-02 10:02] LABS: Hematocrit 39.5 % (39.0-52.0); Hemoglobin 12.9 g/dL (13.0-18.0); Mean Corp Hgb Conc. 32.7 g/dL (33.0-37.0); Mean Corpuscular Volume 84.9 fL (80.0-94.0); Platelet Count 194 10^3/uL (130-400); Red Cell Dist. Width 15.9 % (11.5-14.5)
[2025-05-02 10:23] VITALS: BP 126/66
[2025-05-02 10:36] VITALS: BP 126/66
[2025-05-02 10:38] VITALS: BMI 33.0
[2025-05-02 12:13] VITALS: BP 134/69
[2025-05-02 12:28] VITALS: BP 130/65
--- NOTE | 2025-05-02 12:44 | ITS.CL.PACE ---
Production Grip - Pacemaker Implant
Pacemaker Implant
Procedure Report:
Date of Procedure: May 02, 2025.
Procedures: Dual chamber pacemaker generator change. Pacemaker pulse generator explantation and pacemaker pulse generator implantation.
Indication: Pacemaker at [facility] from natural battery depletion. 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 The patient is pacemaker dependent.
Performing physician: Jovan Grant MD, [facility].
Implant: Pacemaker Pulse Generator: Medtronic; Model# W1DR01; Serial# [id number].
Explanted Pacemaker Pulse Generator (Implanted 06/23/2015): Model# [id number]; Serial# [id number].
Retained RA Lead (Implanted 06/23/2015): RA Lead: Medtronic; Model# 5076-45cm; Serial# [id number].
RV Lead (Implanted 06/23/2015): Medtronic; Model# 5076-52cm; Serial# [id number].
Technique: A time out was performed. The procedure site was identified. The patient was anesthetized by the anesthesia service. Preoperative cefazolin was administered before the skin incision. The patient was prepped and draped in the usual
fashion. Local anesthetic was applied to the left prepectoral subcutaneous tissue. A 3 inch incision was made over the pulse generator. The capsule was entered with Bovie cautery. The old pacemaker pulse generator was explanted. No Bovie cautery was
applied to the lead system. The leads were appropriately attached to the new device. The pocket was irrigated with antibiotic solution. Hemostasis was excellent. The device and leads were placed in the pocket. The incision was closed in three layers
with absorbable suture. Steri-strips and a silver impregnated dressing were applied. The estimated blood loss was 1 mL. There were no complications. No fluoroscopy.
Lead Analysis:
RA lead: P: 1.9 mV; Threshold: 0.5 V @ 0.4 ms; Impedance: 342 ohms.
RV lead: R: None; Threshold: 0.75 V @ 0.4 ms; Impedance: 437 ohms.
Final Programming: DDDR 60 - 130 bpm.
Conclusion:
1. Uncomplicated Medtronic pacemaker change.
2. The pacemaker is MRI conditional.
3. The patient is pacemaker dependent.
Recommendation: Routine post pacemaker care.
cc: NESSA Carcamo.
== END 2025-05-02 12:45 | disposition home or self-care (01) ==
LOC: CATH 09:46
PROVIDERS: ATTENDING PHYSICIAN Internal Medicine Cardiovascular Disease; FAMILY PHYSICIAN Nurse Practitioner
DX: Z45.010 Encounter for checking and testing of cardiac pacemaker pulse generator [battery] (principal); R00.1 Bradycardia, unspecified; I44.2 Atrioventricular block, complete; Z79.02 Long term (current) use of antithrombotics/antiplatelets; Z79.899 Other long term (current) drug therapy
CPT/HCPCS: 33228; 85027; C1785